=== PATIENT | male | born 1970 | race Caucasian/White ===

== ENCOUNTER 2021-11-07 12:28 | Inpatient (IN) | payer OTHER, SELFPAY ==
[2021-11-07] VITALS (19 sets, daily range): BP systolic 123–164; BP diastolic 63–128; PULSE 67–150; RESP 14–20; TEMP 36.1–36.6; O2SAT 97–100; BMI 37.3; BMI 35.2
--- NOTE | 2021-11-07 12:57 | ED.VIS.CHEST ---
HPI History of Present Illness Chief Complaint: Chest Pain Informant: patient Onset/Context/Timing Onset: Today Activity at onset: sudden Timing: Continuous Quality: Positive for Heaviness Location: Substernal Worsened By: Nothing Relieved By: Nothing Associated Symptoms: Positive for Nausea, Diaphoresis, Dyspnea, Acid Reflux and Palpitations; Negative for Vomiting, Cough, Fever or Lightheadedness Narrative Narrative: Patient presents with chest pain that began today. Patient states it began when he woke up this morning. Patient states it has been constant all day today. Patient describes it as a heaviness. Patient states it is over the substernal area. Patient also states he feels like his heart is racing. Patient states he had a brief episode a couple days ago but that resolved. Patient admits to some nausea but denies any vomiting. Patient admits to some mild diaphoresis. Patient admits to some shortness of breath. CVD Risk Factors: Positive for Family History 1' </=55; Negative for Hypertension, Diabetes, Hypercholesterolemia or Smoking PE Risk Factors: Negative for Recent Travel/Surgery, Recent Immobilization, Prior DVT or PE, Cancer or OCP + Smoking + >/=35 PFSH PFSH Medical History no medical history no medical history Home Medications NK 11/07/21 [History Last Taken Unknown] Allergy/AdvReac Type Severity Reaction Status Date / Time No Known Allergies Allergy Verified 11/07/21 12:28 Surgical History no surgical history no surgical history Social History Smoking Status: Former smoker ROS ROS ED Constitutional Constitutional ED: Denies chills or fever(s) Eyes Eyes: Denies blurry vision or change in vision ENT ENT ED: Denies rhinorrhea or sore throat Cardiovascular Cardiovascular: Reports chest pain, palpitations and racing heartbeat Respiratory/Chest Respiratory/Chest: Reports dyspnea; Denies cough Gastrointestinal Gastrointestinal: Reports nausea; Denies vomiting Genitourinary Genitourinary ED: Denies dysuria or hematuria Musculoskeletal Musculoskeletal: Denies back pain or neck pain Integumentary Reports rash; Denies abscess Neurologic Neurologic: Denies headache(s) or weakness Allergic/Immunologic Allergic/Immunologic ED: Denies mouth swelling or urticaria EXAM Physical Exam Const Vital Signs: 11/07/21 12:29 11/07/21 12:38 08/29/22 13:14 Temperature 97.9 F Temperature Source Oral Pulse Rate 150 H Respiratory Rate 16 Respiratory Pattern Normal Blood Pressure 146/128 H Blood Pressure Mean 134 Pulse Ox 98 Oxygen Delivery Method Room Air Room Air 11/07/21 13:28 11/07/21 14:03 11/07/21 14:17 Temperature Temperature Source Pulse Rate 134 H 135 H 138 H Respiratory Rate 17 Respiratory Pattern Blood Pressure 164/72 H 135/108 H 129/95 H Blood Pressure Mean 102 117 Pulse Ox 97 Oxygen Delivery Method Room Air 11/07/21 14:29 Temperature 98 F Temperature Source Temporal Pulse Rate 136 H Respiratory Rate 17 Respiratory Pattern Blood Pressure 124/96 H Blood Pressure Mean 105 Pulse Ox 98 Oxygen Delivery Method Positive well nourished, well developed and obese General Appearance ED: well developed and NAD Nutritional Appearance: obese HEENT Reports moist mucous membranes Neck supple and no JVD Resp normal respiratory effort and clear to auscultation bilaterally Cardio no murmurs Rate: tachycardic Rhythm: abnormal rhythm irregularly irregular GI normal to inspection, nondistended, normoactive bowel sounds and non-tender Palpation: soft Extremity normal to inspection General Extremety ED: Negative for edema or tenderness General Extremity: Negative for edema Neuro oriented x3, CN's II-XII intact bilaterally and no sensory deficits noted Sensorium / Orientation: alert Motor Exam: strength 5/5 throughout Psych mental status grossly normal Skin no rashes or lesions noted Heart Score History: Moderately Suspicious ECG: Nonspecific Repolarization Age: >45 - <65 years Risk Factors: 1 or 2 Risk Factors Score: 4 MDM MDM MDM Narrative Medical decision making narrative: EKG was obtained. On my interpretation, it shows atrial fibrillation with a rate of 168. There are nonspecific ST-T wave changes. QRS interval and QTc intervals were within normal limits. Jolley was normal. Given a dose of Cardizem IV. Patient was given aspirin. Patient was given sublingual nitroglycerin. CBC shows a mild leukocytosis of 11.4. Basic metabolic profile shows an elevated glucose of 175. High-sensitivity troponin was 2465. Patient's heart rate improved from 150 to 130s after the bolus of Cardizem. Patient was started on a Cardizem drip. Case was discussed with Dr. Singleton. He agrees with heparin drip. Case was discussed with the hospitalist. He will admit the patient to his service. Patient understood and was agreeable with the plan. All questions were answered. Lab Data Attestation: I reviewed the patient's lab results. Labs: Laboratory Results - last 24 hr 11/07/21 11/07/21 11/07/21 13:10 13:10 13:10 WBC 11.4 H RBC 5.66 Hgb 17.8 H Hct 49.8 MCV 88.0 MCH 31.4 MCHC 35.7 RDW Std Deviation 41.0 RDW Coeff of Yeny 12.8 Plt Count 318 MPV 9.1 Immature Gran % (Auto) 0.400 Neut % (Auto) 68.0 Lymph % (Auto) 20.0 Cole % (Auto) 9.1 Eos % (Auto) 1.9 Baso % (Auto) 0.6 Absolute Neuts (auto) 7.7 Absolute Lymphs (auto) 2.27 Nucleated RBC % 0 PT 12.0 INR 0.9 APTT 29.4 Sodium 138 Potassium 3.6 Chloride 105 Carbon Dioxide 26.0 Anion Gap 7 BUN 15 Creatinine 0.83 Estim Creat Clear Calc 123.02 Est GFR (MDRD) Af Amer 124 Est GFR (MDRD) Non-Af 102 BUN/Creatinine Ratio 18.0 Glucose 175 H Calcium 9.5 Troponin I High Sens 2465 H* Radiography Chest X-Ray - ED: 1 View, Read by ED Physician, Read by Radiologist and No Acute Disease Diagnostic Testing: Clinical Impression(s) from Imaging Studies Chest X-Ray 11/07/21 13:20 IMPRESSION: Hyperinflation. The lungs are clear. Electronically Signed: Tony Alcaraz MD at 13:35 EDT , EKG Initial EKG: Attestation: I personally reviewed and interpreted this EKG as follows: Interpretation: Atrial Fibrillation (168) and Non-Specific ST Changes Critical Care Time Critical Care Time: Yes Critical care time (excluding procedures): 30-74 minutes (33), Including time spent:, Discussing w/Patient &/or Family/Corporate Law Specialist, Discussing w/Consultants, Arranging Admission or Transfer and Performing Direct Patient Care at Bedside Discharge Plan Dx/Rx/DC Orders Clinical Impression: Non-STEMI (non-ST elevated myocardial infarction), Atrial fibrillation with rapid ventricular response, Hyperglycemia Disposition Disposition: Acute Care Hospital [facility]
--- NOTE | 2021-11-07 13:03 | EKG12_ITS ---
Test Reason : Blood Pressure : / mmHG Vent. Rate : 168 BPM Atrial Rate : 000 BPM P-R Int : 000 ms QRS Dur : 094 ms QT Int : 290 ms P-R-T Axes : 000 065 240 degrees QTc Int : 484 ms Atrial fibrillation with rapid ventricular response with premature ventricular or aberrantly conducte d complexes Marked ST abnormality, possible lateral subendocardial injury Abnormal ECG Confirmed by JUNG RAMOS, TYRELL ([id number]), newspaper or periodical editor [employer] ([id number]) on 11/08/2021 7:44:12 AM Referred By: Confirmed By:TYRELL FENG MD
--- NOTE | 2021-11-07 13:06 | NURSING ---
NO OLD EKGS
[2021-11-07] MEDS: Aspirin 81 MG TAB.CHEW 324 MG PO (13:10)
[2021-11-07] MEDS: dilTIAZem 25 MG/5 ML Vial IV BOLUS (13:11)
--- NOTE | 2021-11-07 13:20 | RAD_ITS ---
STUDY: X-RAY CHEST REASON FOR EXAM: Male, 51 years old. Chest pain TECHNIQUE: Single AP portable view of the chest. COMPARISON: None. FINDINGS: EKG electrodes are seen. Hyperinflation. The lungs are clear. There is no demonstrated pleural abnormality. Normal size heart. Normal mediastinum and roderick. Normal visualized pulmonary arteries. Normal visualized aortic arch and descending thoracic aorta. Normal visualized thoracic spine. Normal visualized ribs, clavicles, and shoulders. There is no demonstrated abnormality of the visualized soft tissue structures of the upper abdomen. RAD/Chest 1 View (Portable) IMPRESSION: Hyperinflation. The lungs are clear. Electronically Signed: Tony Alcaraz MD at 13:35 EDT ,
[2021-11-07 13:21] LABS: Absolute Lymphocyte Count 2.27 X10^3/uL (0.83-4.51); Absolute Neutrophil Count 7.7 X10^3/uL (2.0-7.7); Basophil# 0.07 X10^3/uL; Basophil% 0.6 % (0-1); Eosinophil# 0.22 X10^3/uL; Eosinophils% 1.9 % (0-5); Hematocrit 49.8 % (40-54); Hemoglobin 17.8 g/dL (13.0-16.5); Lymphocyte # 2.27 X10^3/ul (0.83-4.51); Mean Corp Hgb Conc 35.7 g/dL (32-36); Mean Corpuscular Hgb 31.4 pg (27.0-32.0); Mean Platelet Vol. 9.1 fl (6.2-12.0); Monocyte# 1.04 X10^3/uL; Monocyte% 9.1 % (0-10); NRBC Flagged by Analyzer 0 % (0-5); Neutrophil # 7.73 X10^3/uL (2.7-7.7); Platelet Count 318 K/mm3 (150-450); RBC Distribution Width CV 12.8 % (11.6-14.6); Red Blood Count 5.66 M/mm3 (4.6-6.2); White Blood Count 11.4 K/mm3 (4.4-11.0)
[2021-11-07 13:46] LABS: Anion Gap 7 (5-15); BUN 15 mg/dL (7-18); Calcium,Total 9.5 mg/dL (8.5-10.1); Chloride 105 mmol/L (98-107); Creatinine, Serum 0.83 mg/dL (0.70-1.30); EST Glomerular Filtration Rate 102 mL/min (>60); Est Glom Filt Rate - Afr Amer 124 mL/min (>60); Estimated Creatinine Clearance 123.02 ml/min; Glucose 175 mg/dL (74-106); Potassium 3.6 mmol/L (3.5-5.1); Sodium Level 138 mmol/L (136-145); Troponin-I HS (w/2H Reflex) 2465 pg/mL (3.0-78.0)
[2021-11-07] MEDS: HEPARIN/D5w 25,000 UNITS 25,000 UNITS/250 ML IV.SOLN. 17 UNITS CONT INF (14:15)
[2021-11-07] MEDS: Nitroglycerin SL (ED/IMG/CATH) 0.4 MG TABLET SL ×2 (14:17→15:02)
--- NOTE | 2021-11-07 14:36 | NURSING ---
RADU JAQUEZ NSTEMI, AFIB RVR
[2021-11-07] MEDS: Heparin Injection (Vial) 5,000 UNIT/ML VIAL 10500 UNIT IV (14:46)
[2021-11-07 14:50] LABS: International Normalized Ratio 0.9; Partial Thromboplast Time 29.4 Seconds (24.1-36.2)
--- NOTE | 2021-11-07 14:54 | ECHOCS_ITS ---
Reason For Study: AFIB/FLUTTER Procedure This was a 2D Doppler, Color Flow transthoracic echocardiogram. The study was technically difficult. Due to body habitus and arrhythmia. Contrast injection was performed. Exam performed portable in ED. Left Ventricle Based upon the 2D echocardiographic and contrast enhanced images obtained there appears to be grossly normal left ventricular size, left ventricular regional wall motion abnormality, overall preserved LV systolic function. The estimated ejection fraction is 65 %. Unable to assess diastolic dysfunction. Right Ventricle Based upon the 2D echocardiographic images obtained there appears to be grossly normal right ventricular size and systolic function. Atria Normal left atrium. Normal right atrium. No doppler evidence for ASD. Mitral Valve There is no mitral annular calcification. Normal mitral valve. Trivial mitral valve insufficiency. Tricuspid Valve Normal tricuspid valve. Trivial tricuspid valve insufficiency. Unable to estimate RV systolic pressure/pulmonary artery pressure due to technically difficult study. Aortic Valve The aortic valve is not well visualized. Pulmonic Valve The pulmonic valve is not well visualized. Great Vessels The aortic root is not well visualized. Pericardium/Pleural No pericardial effusion. Medication Diluted definity 4.0ml given slow IV push to enhance endocardial definition. MMode/2D Measurements & Calculations LVIDd: 5.5 cm IVSd: 1.2 cm LAV(MOD-bp): 60.8 ml LVIDs: 4.4 cm LVPWd: 1.1 cm RVDd: 3.2 cm FS: 20.5 % LAV(MOD-bp) Indexed: 23.4 ml/m2 LAV(MOD-sp2): 57.9 ml LAV(MOD-sp4): 66.1 ml LA dimension(2D): 3.7 cm LA A4 area: 19.9 cm2 RA A4 area: 13.8 cm2 Doppler Measurements & Calculations MV E max jessica: 75.0 cm/sec Ao V2 max: 106.2 cm/sec LV V1 max: 89.1 cm/sec Ao max P.5 mmHg LV V1 max P.2 mmHg PA V2 max: 92.1 cm/sec ECHO/Echo Complete W/ Contrast Interpretation Summary The study was technically difficult. Contrast injection was performed. Based upon the 2D echocardiographic and contrast enhanced images obtained there appears to be grossly normal left ventricular size, left ventricular regional wall motion abn ormality, overall preserved LV systolic function. The estimated ejection fraction is 65 %. Trivial mitral valve insufficiency. Trivial tricuspid valve insufficiency. Unable to estimate RV systolic pressure/pulmonary artery pressure due to techni trey difficult study. Unable to assess diastolic dysfunction. Ordering Physician: Meera Butterfield Referring Physician: NO PCP Performed By: Maria L Menjivar RDCS, RVT
[2021-11-07 15:16] LABS: Reflex Troponin-HS? (from REC) Y
--- NOTE | 2021-11-07 15:22 | CASEMGMT ---
According to the [employer] website, the following are in-network tertiary facilities: [facility], [facility], [facility], [facility], [facility], [facility], [facility], [facility], [facility], and . Varsha COWAN CM
[2021-11-07 15:34] LABS: Hemoglobin A1c 5.4 % (3.8-5.6)
--- NOTE | 2021-11-07 15:43 | HP.PCM.HOS_ITS ---
Documented by User: Meera Butterfield NP, [employer] 11/07/21 15:57 HPI - General General Date of Admission: 11/07/21 Date of Service: 11/07/21 Chief Complaint: Chest pain. HPI Narrative ALLEY GUPTA, is a 51 M who presents to the emergency room due to chest pain. Patient states this initially began on Sunday. He states yesterday he did not have any chest pain however upon waking this morning his chest pain had r eturned. He describes associated shortness of breath. Denies pain radiation. He took Tums/antacids at home without improvement in symptoms. He denies palpitations. Denies history of similar symptoms or known cardiac history. He states he does not go to doctors. Denies other known medical history. He is a former smoker. [facility] Medical History no medical history Home Medications NK 11/07/21 [History Last Taken Unknown] Allergy/AdvReac Type Severity Reaction Status Date / Time No Known Allergies Allergy Verified 11/07/21 12:28 Family History Father No cardiac disease Mother Multiple sclerosis Surgical History History of tonsillectomy Surgical History no surgical history Social History household members: spouse Smoking Status: Former smoker alcohol intake: never substance use type: does not use ROS Constitutional Constitutional: Denies change in weight, chills, fatigue, fever(s) or weakness Cardiovascular Cardiovascular: Reports chest pain; Denies edema, lightheadedness, palpitations or syncope Respiratory/Chest Respiratory/Chest: Reports other Details: Shortness of breath associated with chest pain ; Denies cough, productive cough or wheezing Gastrointestinal Gastrointestinal: Denies abdominal pain, constipation, diarrhea, nausea or vomiting Genitourinary Genitourinary: Denies burning urination, difficulty urinating, dysuria, hematuria, urinary frequency, urinary incontinence or urinary urgency Musculoskeletal Musculoskeletal: Denies back pain, joint pain or muscle weakness Integumentary Integumentary: Denies erythema, lesions, rash or wounds Neurologic Neurologic: Denies abnormal speech, confusion, dizziness, focal weakness, numbness, paresthesias, seizure-like activity or syncope Psychiatric Psychiatric: Denies anxiety or depression Hematologic/Lymphatic Hematologic/Lymphatic: Denies anemia, easy bleeding or easy bruising Allergic/Immunologic Allergic/Immunologic: Denies hives or asthma Vital Signs Vital Signs Vital Signs: 11/07/21 12:29 11/07/21 12:38 11/07/21 13:14 Temperature 97.9 F Temperature Source Oral Pulse Rate 150 H Respiratory Rate 16 Respiratory Pattern Normal Blood Pressure 146/128 H Blood Pressure Mean 134 Blood Pressure Source Blood Pressure Position Blood Pressure Location Pulse Ox 98 Oxygen Delivery Method Room Air Room Air 11/07/21 13:28 11/07/21 14:03 11/07/21 14:17 Temperature Temperature Source Pulse Rate 134 H 135 H 138 H Respiratory Rate 17 Respiratory Pattern Blood Pressure 164/72 H 135/108 H 129/95 H Blood Pressure Mean 102 117 Blood Pressure Source Blood Pressure Position Blood Pressure Location Pulse Ox 97 Oxygen Delivery Method Room Air 11/07/21 14:29 11/07/21 15:02 11/07/21 15:03 Temperature 98 F Temperature Source Temporal Pulse Rate 136 H 140 H 144 H Respiratory Rate 17 18 Respiratory Pattern Blood Pressure 124/96 H 155/107 H 155/107 H Blood Pressure Mean 105 123 Blood Pressure Source Monitor Blood Pressure Position Semi-Fowlers Blood Pressure Location Right Arm Pulse Ox 98 98 Oxygen Delivery Method Room Air Weight Weight: 298 lb 4.567 oz Body Mass Index (BMI) 37.3 Physical Exam Const alert, oriented x3 and no apparent distress Nutritional Appearance: obese HEENT normocephalic and moist oral mucous membranes Eyes PERRL, EOMs intact bilaterally and conjunctivae normal Neck no lymphadenopathy Resp normal respiratory effort and clear to auscultation bilaterally Cardio no murmurs Cardio Narrative: A. fib with RVR Peripheral Pulses: pulses 2+ throughout GI normal to inspection, nondistended, normoactive bowel sounds, non-tender and non-distended Extremity normal to inspection Skin no rashes or lesions noted Lesions: no lesions Rashes: no rashes Trauma: no lacerations or abrasions Neuro CN's II-XII intact bilaterally, no focal motor deficits, no sensory deficits noted and deep tendon reflexes 2+ bilaterally Psych mental status grossly normal and affect normal Results Lab / Micro Data Result Diagrams: 11/07/21 13:10 11/07/21 13:10 Labs: Laboratory Results - last 24 hr 11/07/21 13:10: WBC 11.4 H, RBC 5.66, Hgb 17.8 H, Hct 49.8, MCV 88.0, MCH 31.4, MCHC 35.7, RDW Std Deviation 41.0, RDW Coeff of Yeny 12.8, Plt Count 318, MPV 9.1, Immature Gran % (Auto) 0.400, Neut % (Auto) 68.0, Lymph % (Auto) 20.0, [facility] % (Auto) 9.1, Eos % (Auto) 1.9, Baso % (Auto) 0.6, Absolute Neuts (auto) 7.7, Absolute Lymphs (auto) 2.27, Nucleated RBC % 0 11/07/21 13:10: Sodium 138, Potassium 3.6, Chloride 105, Carbon Dioxide 26.0, Anion Gap 7, BUN 15, Creatinine 0.83, Estim Creat Clear Calc 123.02, Est GFR (MDRD) Af Amer 124, Est GFR (MDRD) Non-Af 102, BUN/Creatinine Ratio 18.0, Gluc ose 175 H, Calcium 9.5, Troponin I High Sens 2465 H* 11/07/21 13:10: PT 12.0, INR 0.9, APTT 29.4 11/07/21 13:10: Hemoglobin A1c 5.4 Radiology Impression Chest X-Ray 11/07/21 13:20 IMPRESSION: Hyperinflation. The lungs are clear. Electronically Signed: Tony Alcaraz MD at 13:35 EDT , Assessment & Plan Assessment/Plan (1) Non-STEMI (non-ST elevated myocardial infarction): (2) Atrial fibrillation with rapid ventricular response: PLAN: Plan 1. NSTEMI-cardiology consulted. On heparin drip. Aspirin. Lipid profile in AM. Echo ordered. 2. New onset atrial fibrillation with RVR-placed on Cardizem drip on admission. Cardiology consulted. Heparin drip. Echocardiogram pending. TSH, mag within normal limits. 3. Hyperglycemia-reactive. Hemoglobin A1c 5.4%. 4. Former tobacco use-encouraged continued cessation. 5. Obesity-encouraged diet and lifestyle modifications. DVT prophylaxis-Heparin drip This patient was seen by TISHA Faulkner under the supervision of Dr. Mcneal. Time spent examining patient, reviewing data and subsequent management of care: 26 minutes Documented by User: Dr. Joselo Mcneal MD 11/07/21 18:26 HPI - General General Date of Admission: 11/07/21 Chief Complaint: Chest pain. Chest pain on Sunday 2 days ago and today. Shortness of breath associated with A. fib RVR HPI Narrative ALLEY GUPTA, is a 51 M who presents to the emergency room due to chest pain. Patient states this initially began on Sunday. He states yesterday he did not have any chest pain however upon waking this morning his chest pain had returned . He describes associated shortness of breath. Denies pain radiation. He took Tums/antacids at home without improvement in symptoms. He denies palpitations. Denies history of similar symptoms or known cardiac history. He states he does not go to doctors. Denies other known medical history. He is a former smoker. Patient is 50 question review is never seen physician for general wellbeing came to ED for chest pain. Patient said he had first chest pain 2 days ago on 11/05 that lasted for 1 hour but it felt like gas and burping. It was not associated with shortness of breath at that time. After that he was fine yesterday and then had chest pain in the morning today after he woke up. He said chest pain did not wake him up but he felt pressure-like midsternal associated with shortn ess of breath. It was localized with no radiation, 5-6/10 intensity. He denies any previous history of chest pain, angina on exertion or history of atherosclerotic heart disease, stress echo or cardiac cath. After some time he felt palpitation therefore came to ED and was found to be in A. fib RVR. In ED, twelve-lead EKG shows A. fib RVR 168 bpm, T wave inversion V3 to V6 and inferior leads. QTC 484 ms. Troponin high. Child And Family Services Specialist consulted and started on IV heparin drip and Cardizem drip. Patient not hypoxic or tachypneic. Labs reviewed and discussed in assessment and plan. [facility] Medical History no medical history Home Medications NK 11/07/21 [History Last Taken Unknown] Allergy/AdvReac Type Severity Reaction Status Date / Time No Known Allergies Allergy Verified 11/07/21 12:28 Family History Father No cardiac disease Mother Multiple sclerosis Surgical History History of tonsillectomy Surgical History no surgical history Social History household members: spouse Smoking Status: Former smoker alcohol intake: never substance use type: does not use ROS ROS Narrative No burning micturition or UTI. No nausea, vomiting, hematemesis GI bleed, constipation, diarrhea or abdominal pain. Patient felt mild lightheaded at the time of chest pain. No syncope. Rest 14 system ROS reviewed and or as mentioned below Physical Exam Narrative General: Alert, Oriented x3, Cooperative, obesity grade 3 BMI 45.2 kg/m? HEENT: Atraumatic, PERRLA, EOMI, Normocephalic Oral: No Gingival or Mucosal Lesions/ Ulcerations Neck: Supple, No JVD, Negative Carotid Bruits Lungs: Air entry diminished in bilateral lung bases. No crepitation/rhonchi Cardiovascular: A. fib RVR, Normal S1, Normal S2, No murmurs Abdomen: Bowel Sounds Present, Soft, Non Tender, Non-Distended : No renal angle tenderness. No suprapubic tenderness. Extremities: No edema, Capillary Refill Less than 3 Seconds Skin: No rashes, No breakdown Musculoskeletal: No Tenderness to Palpation of Joints or Extremities Neurological: Cranial nerves II-XII grossly intact, DTR 2+/4 and Symmetrical, Neuro grossly intact Psych/Mental Status: Normal Affect, Appropriate. Results Lab / Micro Data Result Diagrams: 11/07/21 13:10 11/07/21 13:10 Assessment & Plan Assessment/Plan (1) Non-STEMI (non-ST elevated myocardial infarction): (2) Atrial fibrillation with rapid ventricular response: PLAN: Plan 1. NSTEMI-cardiology consulted. On heparin drip. Aspirin. Lipid profile in AM. Echo ordered. 2. New onset atrial fibrillation with RVR-placed on Cardizem drip on admission. Cardiology consulted. Heparin drip. Echocardiogram pending. TSH, mag within normal limits. 3. Hyperglycemia-reactive. Hemoglobin A1c 5.4%. 4. Former tobacco use-encouraged continued cessation. 5. Obesity-encouraged diet and lifestyle modifications. DVT prophylaxis-Heparin drip This patient was seen by TISHA Faulkner under the supervision of Dr. Mcneal. Time spent examining patient, reviewing data and subsequent management of care: 26 minutes This patient was seen in conjunction with Meera CODY. I have independently in terviewed and examined the patient and reviewed pertinent history, examination findings, laboratory and plan of management. I have reviewed the note and agree with the documented findings with the few additional points. In brief, patient is 51-year-old gentleman admitted with atypical chest pain as well as shortness of breath, high troponin and EKG suggestive of non-STEMI and A. fib with RVR 1. Non-STEMI: EKG as mentioned in HPI. High troponin. Patient admitted in PCU. Child And Family Services Specialist consulted. Cycle cardiac enzymes and lipid profile tomorrow AM. Chest x-ray individually reviewed and no acute abnormality. Lungs are clear. 2D echo normal LV size, regional wall motion abnormality, EF 65%. On aspirin, IV heparin drip. 2. New onset A. fib with RVR: Exact respecting factor unclear possible due to non-STEMI. Patient started on IV Cardizem drip after Cardizem bolus given in ED. Patient converted in the evening. Cardizem drip tapered off and started on metoprolol 25 mg twice daily titrate up as per tolerated by patient's hemodynamic. 3. Hyperglycemia, reactive: A1c 5.4%. Diabetes mellitus and prediabetes ruled out. Other chronic comorbidities as mentioned above including former tobacco use and obesity grade 3, I have discussed my assessment with Meera CODY and orders have been reviewed. Living will/advanced directive/end of life care: Patient does not have living will or advanced directive. After discussion of benefits/risks procedures involved with full code, DNR CC arrest and DNR CC, the patient opted for full code. Patient does want artificial life support including intubation, tube feed, ventilator and/chest compression, central venous catheter, vasopressor and DC shock if needed Total time spent in [id number] encounter in discussion of advanced directive 16 minutes. Laboratory Results 11/07/21 13:10: WBC 11.4 H, RBC 5.66, Hgb 17.8 H, Hct 49.8, MCV 88.0, MCH 31.4, MCHC 35.7, RDW Std Deviation 41.0, RDW Coeff of Yeny 12.8, Plt Count 318, MPV 9.1, Immature Gran % (Auto) 0.400, Neut % (Auto) 68.0, Lymph % (Auto) 20.0, Baylor % (Auto) 9.1, Eos % (Auto) 1.9, Baso % (Auto) 0.6, Absolute Neuts (auto) 7.7, Absolute Lymphs (auto) 2.27, Nucleated RBC % 0 11/07/21 13:10: Sodium 138, Potassium 3.6, Chloride 105, Carbon Dioxide 26.0, Anion Gap 7, BUN 15, Creatinine 0.83, Estim Creat Clear Calc 123.02, Est GFR (MDRD) Af Amer 124, Est GFR (MDRD) Non-Af 102, BUN/Creatinine Ratio 18.0, Glucose 175 H, Calcium 9.5, Troponin I High Sens 2465 H* 11/07/21 13:10: PT 12.0, INR 0.9, APTT 29.4 11/07/21 13:10: Hemoglobin A1c 5.4 11/07/21 15:05: Magnesium 1.9, Troponin I High Sens 3624 H*, TSH 1.29 Clinical Impression(s) from Imaging Studies Echocardiogram 11/07/21 14:54 Interpretation Summary The study was technically difficult. Contrast injection was performed. Based upon the 2D echocardiographic and contrast enhanced images obtained there appears to be grossly normal left ventricular size, left ventricular regional wall motion abnormality, overall preserved LV systolic function. The estimated ejection fraction is 65 %. Trivial mitral valve insufficiency. Trivial tricuspid valve insufficiency. Unable to estimate RV systolic pressure/pulmonary artery pressure due to technically difficult study. Unable to assess diastolic dysfunction. Charges/Coding Visit Charges Inpatient E&M: 43720 Init Hosp L3 Procedures Hospitalists Procedures: 37140 Advncd Care Plan 30 Min
[2021-11-07 15:50] LABS: Magnesium 1.9 mg/dL (1.6-2.6); Thyroid Stim Hormone (TSH) 1.29 uIU/mL (0.358-3.74); Troponin-I HS 3624 pg/mL (3.0-78.0)
--- NOTE | 2021-11-07 16:39 | ED.RN ---
LATE ENTRY-MEDICATION PULLED FOR PT PER PRN ORDER. PT NOT IN ROOM. PT TAKEN TO FLOOR PER ADMISSION RN. MEDICATION WASTED PER PROTOCOL WITH RN
--- NOTE | 2021-11-07 17:08 | EKG12_ITS ---
Test Reason : AM EKG Blood Pressure : / mmHG Vent. Rate : 074 BPM Atrial Rate : 074 BPM P-R Int : 124 ms QRS Dur : 084 ms QT Int : 382 ms P-R-T Axes : 036 057 000 degrees QTc Int : 424 ms Normal sinus rhythm Nonspecific T wave abnormality Abnormal ECG Confirmed by JUNG RAMOS, TYRELL ([id number]), newspaper editor [employer] ([id number]) on 11/09/2021 8:25:07 AM Referred By: Confirmed By:TYRELL FENG MD
--- NOTE | 2021-11-07 17:51 | EKG12_ITS ---
Test Reason : Blood Pressure : / mmHG Vent. Rate : 110 BPM Atrial Rate : 000 BPM P-R Int : 000 ms QRS Dur : 086 ms QT Int : 320 ms P-R-T Axes : 000 049 -77 degrees QTc Int : 433 ms Atrial fibrillation with rapid ventricular response ST & T wave abnormality, consider inferior ischemia Abnormal ECG Confirmed by JUNG RAMOS, TYRELL ([id number]), photographic editor [employer] ([id number]) on 11/09/2021 8:27:44 AM Referred By: GISELE Confirmed By:TYRELL FENG MD
--- NOTE | 2021-11-07 17:53 | EKG12_ITS ---
Test Reason : Blood Pressure : / mmHG Vent. Rate : 072 BPM Atrial Rate : 072 BPM P-R Int : 120 ms QRS Dur : 092 ms QT Int : 368 ms P-R-T Axes : 019 058 -70 degrees QTc Int : 402 ms Normal sinus rhythm T wave abnormality, consider inferior ischemia Abnormal ECG Confirmed by JUNG RAMOS, TYRELL ([id number]), school photograph editor [employer] ([id number]) on 11/09/2021 8:27:23 AM Referred By: GISELE Confirmed By:TYRELL FENG MD
[2021-11-07] MEDS: Metoprolol Tartrate 25 MG Tablet PO (18:50)
--- NOTE | 2021-11-07 19:14 | CON.PCM.CA_ITS ---
Assessment & Plan Assessment/Plan (1) Non-STEMI (non-ST elevated myocardial infarction): PLAN: The patient presents with signs and objective findings compatible with an acute non-ST segment elevation NH. He has been evaluated with cardiac enzymes and ECGs. He is undergone evaluation with a transthoracic echocardiogram. At the moment he appears to be symptomatically improved. He will continue medical management. He has been recommended for further evaluation with diagnostic cardiac catheterization. The procedure and risks of been discussed with him. He was agreeable to this approach. (2) Atrial fibrillation with rapid ventricular response: PLAN: The patient presented with findings compatible with atrial fibrillation. Status post medical therapy with rate control he is demonstrated spontaneous c onversion to sinus rhythm. He will continue medical management. This has included anticoagulant therapy which can be interrupted for his diagnostic cardiac catheterization procedure. Based upon his clinical course consideration will have to be given as to the continued use of long-term oral systemic anticoagulants. (3) HTN (hypertension): PLAN: The patient reports having findings at nonphysician facilities compatible with hypertension. This does increase his cardiovascular risks This may be a contributing factor to his atrial dysrhythmia. At the present time he will continue to have his blood pressure followed. His medications can be adjusted to assist with blood pressure control. Addt'l Comments The patient's case has been discussed and viewed with the patient and the [facility] emergency department physician staff. This note was generated using a voice recognition system and there may be incorrect words, spelling or punctuation that were not noted when reviewing the office note prior to saving. HPI Consult Data Date of Consult: 11/07/21 HPI Narrative HPI Narrative: ALLEY GUPTA, is a 51 year old white male who presents for vascular consultation based upon concerns of chest discomfort, abnormal cardiac enzymes compatible with an acute non-ST segment elevation NH, and atrial fibrillation superimposed upon possible hypertension. He states that other than being evaluated by the medical community for lacerations requiring sutures he has not followed with a physician nor has he been in the hospital previously. He notes earlier this day he had what he believed to be was gas discomfort in his chest. He states he tried various antacids and again no relief. He had nausea but no emesis. He had the sensation of dyspnea. He also became diaphoretic. As his symptoms persisted he presented to the emergency department. There he was found upon evaluation to have abnormal high-sensitivity troponin I levels and atrial fibrillation with rapid ventricular response with ST segment abnormality potentially compatible with lateral subendocardial injury. He was treated medically with a combination of medicines including IV diltiazem. He was subsequently placed in the PCU for further evaluation and care. As he has been in the PCU he has been noted to have continued evidence of high- sensitivity troponin I levels. His atrial fibrillation rate slowed and he has subsequently spontaneously converted to sinus rhythm. His follow-up ECG demonstrated sinus rhythm with nonspecific ST and T wave abnormality. He also underwent transthoracic echocardiogram with the findings as noted below. Overall at the present time he states he feels much better. He feels he can get up and walk around the hospital. He denies any orthopnea or PND or a history of peripheral pitting edema. He has had no report of near syncope or syncope. He states he does check his blood pressure at places like [facility]. He notes his systolic blood pressure is usually 140 mmHg plus and his diastolic blood pressure may be 85-90 mmHg plus. [facility] Medical History no medical history Home Medications NK 11/07/21 [History Last Taken Unknown] Allergy/AdvReac Type Severity Reaction Status Date / Time No Known Allergies Allergy Verified 11/07/21 12:28 Family History Father No cardiac disease Mother Multiple sclerosis Surgical History History of tonsillectomy Surgical History no surgical history Social History household members: spouse Smoking Status: Former smoker alcohol intake: never substance use type: does not use ROS Constitutional Constitutional: Reports as per HPI Eyes Eyes: Reports as per HPI ENT HEENT: Reports as per HPI Cardiovascular Cardiovascular: Reports chest pain, chest pain at rest, diaphoresis, dyspnea and nausea Respiratory/Chest Respiratory/Chest: Reports dyspnea Gastrointestinal Gastrointestinal: Reports nausea Genitourinary Genitourinary: Reports as per HPI Musculoskeletal Musculoskeletal: Reports as per HPI Integumentary Integumentary: Reports as per HPI Neurologic Neurologic: Reports as per HPI Psychiatric Psychiatric: Reports as per HPI Physical Exam Const alert, oriented x3, no apparent distress and healthy appearing Orientation / Consciousness: awake HEENT normocephalic, head/scalp atraumatic and hearing grossly normal bilaterally Eyes PERRL, EOMs intact bilaterally, conjunctivae normal and no scleral icterus Neck full ROM, supple and no JVD Carotids: normal carotid upstroke Resp normal respiratory effort and clear to auscultation bilaterally Cardio regular rate, regular rhythm, S1 normal heart sound and S2 normal heart sound GI normal to inspection, nondistended, normoactive bowel sounds Extremity no pedal edema Extremity Narrative: Findings potentially compatible with psoriasis Skin Skin Narrative: Findings potentially compatible with psoriasis Psych mental status grossly normal Risk Stratification Risk Stratification Applicable: Yes Age >/= 65: No >/= 3 CAD Risk Factors (HTN, HLD, DM, family hx of CAD, or current smoker): No Aspirin Use in the Past 7 Days: No Severe Angina (>/= episodes in 24 hours): Yes EKG ST Changes >/= 0.5mm: Yes Positive Cardiac Marker: Yes SUZANNA Risk Stratification Score: 3 SUZANNA % Risk: 13% Risk Procedure Criteria Type of Procedure Procedure Type: Elective Elective Risks - COVID COVID Risk Discussion: The surgeon/proceduralist and patient have discussed in detail the risk of exposure to and/or potential harm posed by the COVID-19 virus with having a surgery/procedure at this time versus the risk of delaying the surgery/procedure. It is not possible to know either the risk of delaying the surgery or procedure or chance of getting an infection with perfect accuracy, but a joint decision was made between the patient and the surgeon/proceduralist to proceed at this time with the scheduled surgery/procedure as indicated on the consent form. Objective Data Vital Signs: Vital Signs Temp Pulse Resp BP Pulse Ox O2 Del Method 97.0 F L 79 14 140/87 H 99 Room Air 11/07/21 16:15 11/07/21 19:00 11/07/21 19:00 11/07/21 19:00 11/07/21 19:00 11/07/21 19:00 Oxygen Delivery Method Room Air Weight: 281 lb 4.957 oz Body Mass Index (BMI) 35.2 Intake & Output: Intake and Output for Last 24 Hours 11/05/21 11/06/21 11/07/21 23:59 23:59 23:59 Intake Total 598.25 / 598.25 Balance 598.25 / 598.25 Lab / Micro Data Result Diagrams: 11/07/21 13:10 11/07/21 13:10 Labs: Laboratory Results - last 24 hr 11/07/21 13:10: WBC 11.4 H, RBC 5.66, Hgb 17.8 H, Hct 49.8, MCV 88.0, MCH 31.4, MCHC 35.7, RDW Std Deviation 41.0, RDW Coeff of Yeny 12.8, Plt Count 318, MPV 9.1, Immature Gran % (Auto) 0.400, Neut % (Auto) 68.0, Lymph % (Auto) 20.0, [place] % (Auto) 9.1, Eos % (Auto) 1.9, Baso % (Auto) 0.6, Absolute Neuts (auto) 7.7, Absolute Lymphs (auto) 2.27, Nucleated RBC % 0 11/07/21 13:10: Sodium 138, Potassium 3.6, Chloride 105, Carbon Dioxide 26.0, Anion Gap 7, BUN 15, Creatinine 0.83, Estim Creat Clear Calc 123.02, Est GFR (MDRD) Af Amer 124, Est GFR (MDRD) Non-Af 102, BUN/Creatinine Ratio 18.0, Glucose 175 H, Calcium 9.5, Troponin I High Sens 2465 H* 11/07/21 13:10: PT 12.0, INR 0.9, APTT 29.4 11/07/21 13:10: Hemoglobin A1c 5.4 11/07/21 15:05: Magnesium 1.9, Troponin I High Sens 3624 H*, TSH 1.29 Cardiology Labs/Tests 11/07/21 13:10: WBC 11.4 H, RBC 5.66, Hgb 17.8 H, Hct 49.8, MCV 88.0, MCH 31.4, MCHC 35.7, Plt Count 318, MPV 9.1, Immature Gran % (Auto) 0.400, Neut % (Auto) 68.0, Lymph % (Auto) 20.0, [place] % (Auto) 9.1, Eos % (Auto) 1.9, Baso % (Auto) 0.6, Absolute Neuts (auto) 7.7, Nucleated RBC % 0 11/07/21 13:10: Sodium 138, Potassium 3.6, Chloride 105, Carbon Dioxide 26.0, Anion Gap 7, BUN 15, Creatinine 0.83, Est GFR (MDRD) Af Amer 124, Est GFR (MDRD) Non-Af 102, BUN/Creatinine Ratio 18.0, Glucose 175 H, Calcium 9.5 11/07/21 13:10: PT 12.0, INR 0.9, APTT 29.4 11/07/21 13:10: Hemoglobin A1c 5.4 11/07/21 15:05: Magnesium 1.9 Rhythm: Sinus rhythm EKG: As noted above Radiography Diagnostic Testing: Radiology Impression Chest X-Ray 11/07/21 13:20 IMPRESSION: Hyperinflation. The lungs are clear. Electronically Signed: Tony Alcaraz MD at 13:35 EDT , Echocardiogram 11/07/21 14:54 Interpretation Summary The study was technically difficult. Contrast injection was performed. Based upon the 2D echocardiographic and contrast enhanced images obtained there appears to be grossly normal left ventricular size, left ventricular regional wall motion abnormality, overall preserved LV systolic function. The estimated ejection fraction is 65 %. Trivial mitral valve insufficiency. Trivial tricuspid valve insufficiency. Unable to estimate RV systolic pressure/pulmonary artery pressure due to technically difficult study. Unable to assess diastolic dysfunction. Ordering Physician: Meera Butterfield Referring Physician: TIAGO PCP Performed By: Maria L Menjivar, RDCS, RVT
[2021-11-07 21:06] LABS: Partial Thromboplast Time 50.8 Seconds (24.1-36.2)
[2021-11-07 21:09] LABS: Troponin-I HS 15723 pg/mL (3.0-78.0)
[2021-11-07] MEDS: Lisinopril 5 MG Tablet PO (21:24)
[2021-11-07] MEDS: Heparin Injection (Vial) 5,000 UNIT/ML VIAL IV (21:24)
[2021-11-07] MEDS: 0.9% Saline Lock 10 ML Syringe IV (21:24)
[2021-11-08] VITALS (19 sets, daily range): BP systolic 110–140; BP diastolic 69–86; PULSE 63–102; RESP 14–16; TEMP 36.2–37.1; O2SAT 96–99
[2021-11-08 03:45] LABS: Absolute Lymphocyte Count 3.28 X10^3/uL (0.83-4.51); Basophil# 0.06 X10^3/uL; Basophil% 0.4 % (0-1); Eosinophil# 0.16 X10^3/uL; Hematocrit 45.8 % (40-54); Hemoglobin 15.9 g/dL (13.0-16.5); Lymphocyte # 3.28 X10^3/ul (0.83-4.51); Lymphocyte % 20.6 % (19-41); Mean Corp Hgb Conc 34.7 g/dL (32-36); Mean Corpuscular Hgb 31.1 pg (27.0-32.0); Mean Corpuscular Volume 89.5 fL (80-94); Mean Platelet Vol. 8.8 fl (6.2-12.0); Monocyte# 1.38 X10^3/uL; Monocyte% 8.7 % (0-10); NRBC Flagged by Analyzer 0 % (0-5); Neutrophil # 11.01 X10^3/uL (2.7-7.7); Neutrophil % 68.9 % (47-70); Platelet Count 283 K/mm3 (150-450); RBC Distribution Width CV 12.8 % (11.6-14.6); RBC Distribution Width SD 42.3 fl (35.1-43.9); Red Blood Count 5.12 M/mm3 (4.6-6.2)
[2021-11-08 03:56] LABS: Partial Thromboplast Time 42.1 Seconds (24.1-36.2)
[2021-11-08 04:47] LABS: Anion Gap 7 (5-15); BUN 13 mg/dL (7-18); BUN/Creat Ratio 17.6 RATIO (10-20); Chloride 103 mmol/L (98-107); Cholesterol 154 mg/dL (200); Creatinine, Serum 0.74 mg/dL (0.70-1.30); EST Glomerular Filtration Rate 117 mL/min (>60); Est Glom Filt Rate - Afr Amer 142 mL/min (>60); Estimated Creatinine Clearance 137.98 ml/min; Glucose 117 mg/dL (74-106); High Density Lipoprotein 30 mg/dL; Sodium Level 136 mmol/L (136-145); Triglycerides 234 mg/dL; Very Low Density Lipoprotein 47 mg/dL (5-40)
[2021-11-08] MEDS: 0.9% Normal Saline 1,000 ML 15 ML IV (06:15)
[2021-11-08] MEDS: Aspirin E.C. 81 MG Tablet PO (06:16)
[2021-11-08] MEDS: Lisinopril 5 MG Tablet PO ×2 (06:17→21:25)
[2021-11-08] MEDS: Metoprolol Tartrate 25 MG Tablet PO ×2 (06:17→21:25)
[2021-11-08] MEDS: 0.9% Saline Lock 10 ML Syringe IV ×2 (06:17→21:25)
--- NOTE | 2021-11-08 07:33 | PCM.PN.HOSP ---
Objective Data Objective Data Vital Signs: Vital Signs Temp Pulse Resp BP Pulse Ox O2 Del Method 36.2 C L 78 16 121/69 H 98 Room Air 11/08/21 06:15 11/08/21 06:17 11/08/21 06:15 11/08/21 06:15 11/08/21 06:15 11/08/21 06:15 Oxygen Delivery Method Room Air Weight: 127.6 kg Body Mass Index (BMI) 35.2 Intake & Output: Intake and Output for Last 24 Hours 11/06/21 11/07/21 11/08/21 23:59 23:59 23:59 Intake Total 722.35 / 1322.35 720.6 / 720.6 Balance 722.35 / 1322.35 720.6 / 720.6 Lab / Micro Data Result Diagrams: 11/08/21 03:15 11/08/21 03:15 Labs: Laboratory Results - last 24 hr 11/07/21 13:10: WBC 11.4 H, RBC 5.66, Hgb 17.8 H, Hct 49.8, MCV 88.0, MCH 31.4, MCHC 35.7, RDW Std Deviation 41.0, RDW Coeff of Yeny 12.8, Plt Count 318, MPV 9.1, Immature Gran % (Auto) 0.400, Neut % (Auto) 68.0, Lymph % (Auto) 20.0, Emanuel % (Auto) 9.1, Eos % (Auto) 1.9, Baso % (Auto) 0.6, Absolute Neuts (auto) 7.7, Absolute Lymphs (auto) 2.27, Nucleated RBC % 0 11/07/21 13:10: Sodium 138, Potassium 3.6, Chloride 105, Carbon Dioxide 26.0, Anion Gap 7, BUN 15, Creatinine 0.83, Estim Creat Clear Calc 123.02, Est GFR (MDRD) Af Amer 124, Est GFR (MDRD) Non-Af 102, BUN/Creatinine Ratio 18.0, Glucose 175 H, Calcium 9.5, Troponin I High Sens 2465 H* 11/07/21 13:10: PT 12.0, INR 0.9, APTT 29.4 11/07/21 13:10: Hemoglobin A1c 5.4 11/07/21 15:05: Magnesium 1.9, Troponin I High Sens 3624 H*, TSH 1.29 11/07/21 20:15: Troponin I High Sens 44805 H* 11/07/21 20:15: APTT 50.8 H 11/08/21 03:15: WBC 16.0 H, RBC 5.12, Hgb 15.9, Hct 45.8, MCV 89.5, MCH 31.1, MCHC 34.7, RDW Std Deviation 42.3, RDW Coeff of Yeny 12.8, Plt Count 283, MPV 8.8, Immature Gran % (Auto) 0.400, Neut % (Auto) 68.9, Lymph % (Auto) 20.6, Emanuel % (Auto) 8.7, Eos % (Auto) 1.0, Baso % (Auto) 0.4, Absolute Neuts (auto) 11.0 H, Absolute Lymphs (auto) 3.28, Nucleated RBC % 0 11/08/21 03:15: Sodium 136, Potassium 4.0, Chloride 103, Carbon Dioxide 26.0, Anion Gap 7, BUN 13, Creatinine 0.74, Estim Creat Clear Calc 137.98, Est GFR (MDRD) Af Amer 142, Est GFR (MDRD) Non-Af 117, BUN/Creatinine Ratio 17.6, Glucose 117 H, Calcium 9.0, Triglycerides 234 H, Cholesterol 154, LDL Cholesterol 77, VLDL Cholesterol 47 H, HDL Cholesterol 30 L 11/08/21 03:15: APTT 42.1 H Radiography Diagnostic Testing: Radiology Impression Chest X-Ray 11/07/21 13:20 IMPRESSION: Hyperinflation. The lungs are clear. Electronically Signed: Tony Alcaraz MD at 13:35 EDT , Echocardiogram 11/07/21 14:54 Interpretation Summary The study was technically difficult. Contrast injection was performed. Based upon the 2D echocardiographic and contrast enhanced images obtained there appears to be grossly normal left ventricular size, left ventricular regional wall motion abnormality, overall preserved LV systolic function. The estimated ejection fraction is 65 %. Trivial mitral valve insufficiency. Trivial tricuspid valve insufficiency. Unable to estimate RV systolic pressure/pulmonary artery pressure due to technically difficult study. Unable to assess diastolic dysfunction. Ordering Physician: Meera Butterfield Referring Physician: TIAGO PCP Performed By: Maria L Menjivar, COREY, RVT Assessment & Plan Assessment/Plan (1) Non-STEMI (non-ST elevated myocardial infarction): PLAN: Peak trocardiology consulted. 2D echo shows EF 65% On heparin drip. Aspirin. Lipid profile in AM. Diagnostic cath planned (2) Atrial fibrillation with rapid ventricular response: PLAN: New onset atrial fibrillation with RVR-placed on Cardizem drip on admission. Cardiology consulted. Heparin drip. Echocardiogram pending. TSH, mag within normal limits. PLAN: Plan 3. Hyperglycemia-reactive. Hemoglobin A1c 5.4%. 4. Former tobacco use-encouraged continued cessation. 5. Obesity-encouraged diet and lifestyle modifications. DVT prophylaxis-Heparin drip This patient was seen by Meera Butterfield NP-C under the supervision of Dr. Mcneal. Time spent examining patient, reviewing data and subsequent management of care: 26 minutes This patient was seen in conjunction with Meera CODY. I have independently interviewed and examined the patient and reviewed pertinent history, examination findings, laboratory and plan of management. I have reviewed the note and agree with the documented findings with the few additional points. In brief, patient is 51-year-old gentleman admitted with atypical chest pain as well as shortness of breath, high troponin and EKG suggestive of non-STEMI and A. fib with RVR 1. Non-STEMI: EKG as mentioned in HPI. High troponin. Patient admitted in PCU. Rac Specialist consulted. Cycle cardiac enzymes and lipid profile tomorrow AM. Chest x-ray individually reviewed and no acute abnormality. Lungs are clear. 2D echo normal LV size, regional wall motion abnormality, EF 65%. On aspirin, IV heparin drip. 2. New onset A. fib with RVR: Exact respecting factor unclear possible due to non-STEMI. Patient started on IV Cardizem drip after Cardizem bolus given in ED. Patient converted in the evening. Cardizem drip tapered off and started on metoprolol 25 mg twice daily titrate up as per tolerated by patient's hemodynamic. 3. Hyperglycemia, reactive: A1c 5.4%. Diabetes mellitus and prediabetes ruled out. Other chronic comorbidities as mentioned above including former tobacco use and obesity grade 3, I have discussed my assessment with [employer] ETCHERMeera and orders have been reviewed. Living will/advanced directive/end of life care: Patient does not have living will or advanced directive. After discussion of benefits/risks procedures involved with full code, DNR CC arrest and DNR CC, the patient opted for full code. Patient does want artificial life support including intubation, tube feed, ventilator and/chest compression, central venous catheter, vasopressor and DC shock if needed Total time spent in [id number] encounter in discussion of advanced directive 16 minutes. Laboratory Results 11/07/21 13:10: WBC 11.4 H, RBC 5.66, Hgb 17.8 H, Hct 49.8, MCV 88.0, MCH 31.4, MCHC 35.7, RDW Std Deviation 41.0, RDW Coeff of Yeny 12.8, Plt Count 318, MPV 9.1, Immature Gran % (Auto) 0.400, Neut % (Auto) 68.0, Lymph % (Auto) 20.0, Emanuel % (Auto) 9.1, Eos % (Auto) 1.9, Baso % (Auto) 0.6, Absolute Neuts (auto) 7.7, Absolute Lymphs (auto) 2.27, Nucleated RBC % 0 11/07/21 13:10: Sodium 138, Potassium 3.6, Chloride 105, Carbon Dioxide 26.0, Anion Gap 7, BUN 15, Creatinine 0.83, Estim Creat Clear Calc 123.02, Est GFR (MDRD) Af Amer 124, Est GFR (MDRD) Non-Af 102, BUN/Creatinine Ratio 18.0, Glucose 175 H, Calcium 9.5, Troponin I High Sens 2465 H* 11/07/21 13:10: PT 12.0, INR 0.9, APTT 29.4 11/07/21 13:10: Hemoglobin A1c 5.4 11/07/21 15:05: Magnesium 1.9, Troponin I High Sens 3624 H*, TSH 1.29 Clinical Impression(s) from Imaging Studies Echocardiogram 11/07/21 14:54 Interpretation Summary The study was technically difficult. Contrast injection was performed. Based upon the 2D echocardiographic and contrast enhanced images obtained there appears to be grossly normal left ventricular size, left ventricular regional wall motion abnormality, overall preserved LV systolic function. The estimated ejection fraction is 65 %. Trivial mitral valve insufficiency. Trivial tricuspid valve insufficiency. Unable to estimate RV systolic pressure/pulmonary artery pressure due to technically difficult study. Unable to assess diastolic dysfunction.
--- NOTE | 2021-11-08 11:54 | ECHOL_ITS ---
Reason For Study: R/O Pericardial effusion Procedure This was a limited 2D transthoracic echocardiogram. Perfomed portable in labeling strategist. ECHO/Echo, Limited Study Interpretation Summary Limited study done in the labeling strategist to look for pericardial effusion did not rev eal any evidence of pericardial effusion. Ordering Physician: Jessica Mills Performed By: Kalani Flores WILLIAM
--- NOTE | 2021-11-08 12:15 | EKG12_ITS ---
Test Reason : PCI Blood Pressure : / mmHG Vent. Rate : 075 BPM Atrial Rate : 075 BPM P-R Int : 138 ms QRS Dur : 088 ms QT Int : 368 ms P-R-T Axes : 037 050 -04 degrees QTc Int : 410 ms Normal sinus rhythm Nonspecific T wave abnormality Abnormal ECG Confirmed by JUNG RAMOS, TYRELL ([id number]), videotape editor [employer] WOODS ([id number]) on 11/10/2021 8:15:18 AM Referred By: MARCEL Confirmed By:TYRELL FENG MD
--- NOTE | 2021-11-08 13:02 | PN.HOSP_ITS ---
Documented by User: Meera Butterfield NP, PULP OPERATOR-C 11/08/21 13:23 Subjective Subjective Patient seen and examined. Underwent heart cath with stent to RCA x4. Denies further chest pain. Denies shortness of breath. Remains in sinus rhythm. Objective Data Objective Data Vital Signs: Vital Signs Temp Pulse Resp BP Pulse Ox O2 Del Method 97.6 F L 80 16 118/78 96 Room Air 11/08/21 12:46 11/08/21 12:46 11/08/21 12:46 11/08/21 12:46 11/08/21 12:46 11/08/21 12:30 Oxygen Delivery Method Room Air Weight: 281 lb 4.957 oz Body Mass Index (BMI) 35.2 Intake & Output: Intake and Output for Last 24 Hours 11/06/21 11/07/21 11/08/21 23:59 23:59 23:59 Intake Total 722.35 / 1322.35 1080.6 / 1080.6 Balance 722.35 / 1322.35 1080.6 / 1080.6 Lab / Micro Data Result Diagrams: 11/08/21 03:15 11/08/21 03:15 Labs: Laboratory Results - last 24 hr 11/07/21 13:10: WBC 11.4 H, RBC 5.66, Hgb 17.8 H, Hct 49.8, MCV 88.0, MCH 31.4, MCHC 35.7, RDW Std Deviation 41.0, RDW Coeff of [place]eny 12.8, Plt Count 318, MPV 9.1, Immature Gran % (Auto) 0.400, Neut % (Auto) 68.0, Lymph % (Auto) 20.0, [place] % (Auto) 9.1, Eos % (Auto) 1.9, Baso % (Auto) 0.6, Absolute Neuts (auto) 7.7, Absolute Lymphs (auto) 2.27, Nucleated RBC % 0 11/07/21 13:10: Sodium 138, Potassium 3.6, Chloride 105, Carbon Dioxide 26.0, Anion Gap 7, BUN 15, Creatinine 0.83, Estim Creat Clear Calc 123.02, Est GFR (MDRD) Af Amer 124, Est GFR (MDRD) Non-Af 102, BUN/Creatinine Ratio 18.0, Glucose 175 H, Calcium 9.5, Troponin I High Sens 2465 H* 11/07/21 13:10: PT 12.0, INR 0.9, APTT 29.4 11/07/21 13:10: Hemoglobin A1c 5.4 11/07/21 15:05: Magnesium 1.9, Troponin I High Sens 3624 H*, TSH 1.29 11/07/21 20:15: Troponin I [place]ens 32840 H* 11/07/21 20:15: APTT 50.8 H 11/08/21 03:15: WBC 16.0 H, RBC 5.12, Hgb 15.9, Hct 45.8, MCV 89.5, MCH 31.1, MCHC 34.7, RDW Std Deviation 42.3, RDW Coeff of [place]en[place] 12.8, Plt Count 283, MPV 8.8, Immature Gran % (Auto) 0.400, Neut % (Auto) 68.9, Lymph % (Auto) 20.6, [place] % (Auto) 8.7, Eos % (Auto) 1.0, Baso % (Auto) 0.4, Absolute Neuts (auto) 11.0 H, Absolute Lymphs (auto) 3.28, Nucleated RBC % 0 11/08/21 03:15: Sodium 136, Potassium 4.0, Chloride 103, Carbon Dioxide 26.0, Anion Gap 7, BUN 13, Creatinine 0.74, Estim Creat Clear Calc 137.98, Est GFR (M DRD) Af Amer 142, Est GFR (MDRD) Non-Af 117, BUN/Creatinine Ratio 17.6, Glucose 117 H, Calcium 9.0, Triglycerides 234 H, Cholesterol 154, LDL Cholesterol 77, VLDL Cholesterol 47 H, HDL Cholesterol 30 L 11/08/21 03:15: APTT 42.1 H Radiography Diagnostic Testing: Radiology Impression Chest X-Ray 11/07/21 13:20 IMPRESSION: Hyperinflation. The lungs are clear. Electronically Signed: Tony Alcaraz MD at 13:35 EDT , Echocardiogram 11/07/21 14:54 Interpretation Summary The study was technically difficult. Contrast injection was performed. Based upon the 2D echocardiographic and contrast enhanced images obtained there appears to be grossly normal left ventricular size, left ventricular regional wall motion abnormality, overall preserved LV systolic function. The estimated ejection fraction is 65 %. Trivial mitral valve insufficiency. Trivial tricuspid valve insufficiency. Unable to estimate RV systolic pressure/pulmonary artery pressure due to technically difficult study. Unable to assess diastolic dysfunction. Ordering Physician: Meera Butterfield Referring Physician: TIAGO PCP Performed By: Maria L Menjivar RDCS, RVT Physical Exam Const alert, oriented x3 and no apparent distress Nutritional Appearance: obese HEENT normocephalic and moist oral mucous membranes Eyes PERRL, EOMs intact bilaterally and conjunctivae normal Neck no lymphadenopathy Resp normal respiratory effort and clear to auscultation bilaterally Cardio regular rate, regular rhythm and no murmurs Peripheral Pulses: pulses 2+ throughout GI normal to inspection, nondistended, normoactive bowel sounds, non-tender and non-distended Extremity normal to inspection Skin no rashes or lesions noted Lesions: no lesions Rashes: no rashes Trauma: no lacerations or abrasions Neuro CN's II-XII intact bilaterally, no focal motor deficits, no sensory deficits noted and deep tendon reflexes 2+ bilaterally Psych mental status grossly normal and affect normal Assessment & Plan Assessment/Plan (1) Non-STEMI (non-ST elevated myocardial infarction): (2) Atrial fibrillation with rapid ventricular response: PLAN: Plan 1. NSTEMI-cardiology consulted.? S/P heart cath with stent x4. Cath report pending. On aspirin, metoprolol, lisinopril, Brilinta. Add statin. 2.? New onset atrial fibrillation with RVR-Cardiology consulted. Echocardiogram with EF 65%.? TSH, mag within normal limits. Converted to sinus rhythm. Continue metoprolol. Cardiology further considering continued use of long-term anticoagulation. 3. Hyperglycemia-reactive.? Hemoglobin A1c 5.4%. 4. Former tobacco use-encouraged continued cessation. 5. Obesity-encouraged diet and lifestyle modifications. DVT prophylaxis-Heparin This patient was seen by TISHA Faulkner under the supervision of Dr. Lang. Time spent examining patient, reviewing data and subsequent management of care: 14 minutes Documented by User: Dr. Dagoberto Lang, 11/08/21 14:48 Objective Data Lab / Micro Data Result Diagrams: 11/08/21 03:15 11/08/21 03:15 Assessment & Plan Assessment/Plan (1) Non-STEMI (non-ST elevated myocardial infarction): (2) Atrial fibrillation with rapid ventricular response: Charges/Coding Addendum Addendum: Patient seen and examined independently. Data and vitals reviewed. I agree with the above note by the nurse practitioner. Feels better than he has in 20 years. No current chest pain. Patient is no acute distress and afebrile. Heart rate regular rate and rhythm plus S1-S2 with a murmurs gallops or rubs. Lungs are clear to auscultation bilaterally. Abdomen is soft nontender nondistended normal bowel sounds. Assessment and plan 1. Non-ST elevation myocardial infarction Status post PCI to the RCA. Will need staged PCI on LAD. May be done while patient is inpatient versus outpatient follow-up. Continue with aspirin, atorvastatin and ticagrelor 2. New onset atrial fibrillation with RVR EF 65% on 2D echocardiogram. No normal sinus rhythm. On heparin drip On metoprolol tartrate Visit Charges Inpatient E&M: 68444 Subs Hosp L2
--- NOTE | 2021-11-08 13:18 | CRPHASE1 ---
Patient Communication PHII Cardiac Rehab Discussed with Patient:: Yes Guide to Cardiac Rehab Given to Patient:: Yes Cardiac Rehab Facility Choice List Given to Patient:: Yes Choice Program [facility] CR PHII:: Communication Given to CR Choice Program Other:: Communication Given to CR Plumbing Technician:: Jessica Mills Refer Phase II Cardiac Rehab:: Yes Sessions:: 36 sessions - 3 days/wk, 12 weeks Cardiac Rehabilitation Info Cardiac Rehabilitation Program Information: Cardiac Rehabilitation is important for patients like you who are recovering from a heart problem. Cardiac rehabilitation programs are recognized as integral to the continued care of the patient with coronary heart disease. The cardiac rehabilitation program is designed to optimize a patient's physical, psychological, and social functioning. Health technical healthcare consultant work in cardiac rehabilitation programs and assist you with getting the treatments you need to get stronger and healthier - like exercise, healthy eating habits, and medications. Cardiac rehabilitation has been show to help people with heart problems live longer and have better life enjoyment than people who do not go to cardiac rehabilitation. Please contact the Cardiac Rehabilitation Program at [facility] at in two weeks if you have not heard from them.
--- NOTE | 2021-11-08 13:18 | CRPH1.INSTRU ---
General Education CAD and cardiac anatomy and function:: Patient communicates acknowledgment Explanation of diagnoses and procedures:: Patient communicates acknowledgment Sign/Symptoms of [place]:: Patient communicates acknowledgment Antiplatelet therapy: Patient communicates acknowledgment Smoking Patient Nicotine/Smoking Risk Factors Are:: Non-smoker Recommendations Include:: Previous smoker; encourage continued cessation Nicotine/Smoking Response Code:: Patient communicates acknowledgment Dyslipidemia Patient Dyslipidemia Risk Factors Are:: Total Cholesterol, Triglycerides, HDL, LDL Recommendations Include:: Lipid profile provided, Reviewed NCEP/ATP guidelines, Therapeutic Lifestyle Change dietary guidelines Dyslipidemia Response Code:: Patient communicates acknowledgment Overweight/Obesity Patient Overweight/Obesity Risk Factors Are:: Obesity - > or = 30 Recommendations Include:: Weight loss of 5-10%, Reduced calorie diet, Exercise 5-7 times/week Overweight/Obesity:: Patient communicates acknowledgment Hypertension Patient Hypertension Risk Factors Are:: No documented hx of HTN Diabetes Patient Diabetes Risk Factors Are:: No documented hx of diabetes Metabolic Syndrome Patient Metabolic Syndrome Risk Factors Are [3 of 5]:: Fasting blood sugar > 100 mg/dL, Waist circumference > 35 [female] or 40 [male], High triglyceride >150, Low HDL <40 [male] or < 50 [female] Recommendations Include:: Reinforce compliance to risk factor modifications, Encouraged follow-up with Primary Care Physician Metabolic Syndrome Response Code:: Patient communicates acknowledgment Sedentary Patient Sedentary Risk Factors Are:: Lack of regular exercise Recommendations Include:: Aerobic exercise 5-7 times/week for 20-30 minutes continuously, Benefits of regular exercise, Discussed home walking program, Monitored Outpatient Cardiac Rehab Sedentary Response Code:: Patient communicates acknowledgment Stress Recommendations Include:: Identification of stressors, and assessment of coping skills, Stress management techniques Stress Response Code:: Patient communicates acknowledgment
--- NOTE | 2021-11-08 13:37 | CASEMGMT ---
Patient does not have a Healthcare Power of Security Sme or Healthcare Living Will. Patient is not interested in completing documents. Vandana CHRISTENSEN
--- NOTE | 2021-11-08 13:45 | CASEMGMT ---
CHAPO GAVIN Face to Face with patient for initial transition planning/care coordination assessment. CHAPO GAVIN introduced self and role at [facility]. Patient lying in bed, alert and oriented. Patient willing to participate in assessment and is able to answer all questions appropriately. Care providers, pharmacy, and demographics verified. Patient wishes to discharge home, denies need for home health at this time. Patient states he has no further needs or concerns at this time. CM to follow for discharge planning needs that may arise. PCP: None, patient provided with copy of physician directory. CHAPO GAVIN educated patient on the importance of establishing with PCP for follow-up care. Patient voiced understanding and review list and schedule with preferred provider. Specialists: none Preferred Pharmacy: [facility] Insurance: [employer] Prescription Benefit: yes Living Will/HPOA: none LNOK: Living Arrangements: Patient lives with in 2 story condo with bed and bath on first floor, 2 steps to enter the home. Patient states he was independent at home prior to hospitalization Transportation: self, friend DME/HHC: Patient has BP cuff at home. Denies further DME in the home. Patient denies previous HHC. Disposition Plan: Patient to discharge home with family support and follow-up plans in place. Missy DE LEÓN, RN, CM
--- NOTE | 2021-11-08 15:02 | CL.D_ITS ---
Patient Name: ALLEY GUPTA Study Date: 11/08/2021 Performing: Wayne Singleton MD Ht: 75 inches 190.5 cm : 1970 Wt: 281.31 lbs 127.6 kg Age: 51 Gender: male BSA: 2.54 PROCEDURE(S) PERFORMED DC02-(51638)LHC/COR IC12-(57539/C9600)RENA W/WO PTCA, SINGLE CORONARY ARTERY CLINICAL PROFILE AND INDICATIONS Indications: ACS <= 24 hrs, Suspected CAD Heart Failure: None Stress/Imaging Stress/Image Study Performed: No Angina Classification Anginal Classification w/in 2 Weeks: CCS IV CAD Presentations: Non-STEMI. CONCLUSIONS Normal Left Ventricular End Diastolic Pressure [place] Multivessel CAD RECOMMENDATIONS Risk factor modification Medical therapy Consider further catheter based diagnostic evaluation by interventional cardiology Case discussed / reviewed with Dr. Mills on intervnetional cardiology DESCRIPTION OF PROCEDURE The patient arrived to the procedure lab. The risks and benefits of the procedure as well as a full description of our services here and current unavailability of surgical backup were fully explained to the patient and/or their significant other prior to the catheterization. The Timeout was completed, verifying the correct patient and procedure. The patient's procedural site was prepped and draped in the usual fashion. Local anesthetic was given subcutaneously to right radial region with Lidocaine 2%. Using a modified Seldinger technique, arterial access was obtained via the right radial artery, a 6Fr sheath was inserted., arterial access was obtained via the right radial artery, a 6Fr 23 cm sheath was inserted. Left Coronary Artery selective angiography was performed in multiple views using a 5 Fr. 4.0 [place] catheter. Right Coronary Artery selective angiography was then performed in multiple views using a 5 Fr. 4.0 [place] catheter. LV to AO pullback pressures were then recorded.The arterial sheath was pulled and a TR Band was applied for hemostasis CORONARY ANGIOGRAPHY DOMINANCE: Right Dominant LEFT HEART ASSESSMENT Left Ventricular Ejection Fraction: Not assessed Normal Left Ventricular End Diastolic Pressure LVEDP: 9 mmHg LEFT MAIN: Angiographically normal LEFT ANTERIOR DESCENDING ARTERY: PROX LAD: Mild calcification, 25 % Stenosis MID LAD: 95 % Stenosis CIRCUMFLEX ARTERY: PROX CIRC: Mild luminal irregularities, 50 % Stenosis RAMUS: Mild luminal irregularities RIGHT CORONARY ARTERY: PROX RCA: is occluded (possible thrombus) COLLATERAL FLOW: Collateral flow from Left to Right COMPLICATIONS No Complications PROCEDURE MEDICATIONS Versed 1 mg IV Fentanyl 50 mcg IV Versed 1 mg IV Fentanyl 50 mcg IV Versed 1 mg IV Fentanyl 50 mcg IV Fentanyl 50 mcg IV Fentanyl 50 mcg IV Fentanyl 25 mcg IV Oxygen: 2 L/min via nasal cannula Brilinta 180 mg PO @ 11/08/2021 11:53:00 Heparin given IA 11/08/2021 08:05:24 Heparin 8000 unit(s) IV 11/08/2021 09:54:03 Heparin 3000 unit(s) IV 11/08/2021 10:32:39 Heparin 2000 unit(s) IV 11/08/2021 11:24:20 Verapamil 2.5mg, Ntg 100mcgs, 3000 units of Heparin given IA 11/08/2021 08:05:24 SUMMARY OF HEMODYNAMIC DATA Time AIR REST AO 0/0 (70) SA 07:45:34 ECG 07:48:49 AO 95/73 (86) 08:06:58 AO 103/77 (90) 08:12:45 LV 131/5, 9 08:16:39 LV 128/5, 27 08:16:46 LVp 135/4, 28 08:16:52 AOp 123/76 (97) 08:16:57 AIR REST 08:58:59 Signed By Wayne Singleton MD On 11/08/2021 15:01:27 Wayne Singleton MD
--- NOTE | 2021-11-08 15:02 | PCM.PN.CARD ---
Subjective Subjective The patient is status post diagnostic cardiac catheterization which led to RCA PTCA/stent procedure. He appears to be resting comfortably at this time. Objective Data Vital Signs: Vital Signs Temp Pulse Resp BP Pulse Ox O2 Del Method 97.6 F L 80 15 133/86 H 99 Room Air 11/08/21 12:46 11/08/21 14:50 11/08/21 14:50 11/08/21 14:50 11/08/21 14:50 11/08/21 14:50 Oxygen Delivery Method Room Air Weight: 281 lb 4.957 oz Body Mass Index (BMI) 35.2 Intake & Output: Intake and Output for Last 24 Hours 11/06/21 11/07/21 11/08/21 23:59 23:59 23:59 Intake Total 722.35 / 1322.35 1080.6 / 1080.6 Balance 722.35 / 1322.35 1080.6 / 1080.6 Lab / Micro Data Result Diagrams: 11/08/21 03:15 11/08/21 03:15 Labs: Laboratory Results - last 24 hr 11/07/21 13:10: Hemoglobin A1c 5.4 11/07/21 15:05: Magnesium 1.9, Troponin I High Sens 3624 H*, TSH 1.29 11/07/21 20:15: Troponin I [place] Sens 23868 H* 11/07/21 20:15: APTT 50.8 H 11/08/21 03:15: WBC 16.0 H, RBC 5.12, Hgb 15.9, Hct 45.8, MCV 89.5, MCH 31.1, MCHC 34.7, RDW Std Deviation 42.3, RDW Coeff of Yeny 12.8, Plt Count 283, MPV 8.8, Immature Gran % (Auto) 0.400, Neut % (Auto) 68.9, Lymph % (Auto) 20.6, [place] % (Auto) 8.7, Eos % (Auto) 1.0, Baso % (Auto) 0.4, Absolute Neuts (auto) 11.0 H, Absolute Lymphs (auto) 3.28, Nucleated RBC % 0 11/08/21 03:15: Sodium 136, Potassium 4.0, Chloride 103, Carbon Dioxide 26.0, Anion Gap 7, BUN 13, Creatinine 0.74, Estim Creat Clear Calc 137.98, Est GFR (MDRD) Af Amer 142, Est GFR (MDRD) Non-Af 117, BUN/Creatinine Ratio 17.6, Glucose 117 H, Calcium 9.0, Triglycerides 234 H, Cholesterol 154, LDL Cholesterol 77, VLDL Cholesterol 47 H, HDL Cholesterol 30 L 11/08/21 03:15: APTT 42.1 H Cardiology Labs/Tests 11/07/21 13:10: Hemoglobin A1c 5.4 11/07/21 15:05: Magnesium 1.9 11/07/21 20:15: APTT 50.8 H 11/08/21 03:15: WBC 16.0 H, RBC 5.12, Hgb 15.9, Hct 45.8, MCV 89.5, MCH 31.1, MCHC 34.7, Plt Count 283, MPV 8.8, Immature Gran % (Auto) 0.400, Neut % (Auto) 68.9, Lymph % (Auto) 20.6, [place] % (Auto) 8.7, Eos % (Auto) 1.0, Baso % (Auto) 0.4, Absolute Neuts (auto) 11.0 H, Nucleated RBC % 0 11/08/21 03:15: Sodium 136, Potassium 4.0, Chloride 103, Carbon Dioxide 26.0, Anion Gap 7, BUN 13, Creatinine 0.74, Est GFR (MDRD) Af Amer 142, Est GFR (MDRD) Non-Af 117, BUN/Creatinine Ratio 17.6, Glucose 117 H, Calcium 9.0, Triglycerides 234 H, Cholesterol 154, LDL Cholesterol 77, VLDL Cholesterol 47 H, HDL Cholesterol 30 L 11/08/21 03:15: APTT 42.1 H Rhythm: Sinus rhythm Cardiac Cath: CONCLUSIONS Normal Left Ventricular End Diastolic Pressure [place] Multivessel CAD RECOMMENDATIONS Risk factor modification Medical therapy Consider further catheter based diagnostic evaluation by interventional cardiology Case discussed / reviewed with Dr. Mills on intervnetional cardiology DESCRIPTION OF? PROCEDURE The patient arrived to the procedure lab. The risks and benefits of the procedure as well as a full description of our services here and current unavailability of surgical backup were fully explained to the patient and/or their significant other prior to the catheterization. The Timeout was completed, verifying the correct patient and procedure. The patient's procedural site was prepped and draped in the usual fashion. Local anesthetic was given subcutaneously to right radial region with Lidocaine 2%. Using a modified Seldinger technique, arterial access was obtained via the right radial artery, a 6Fr sheath was inserted., arterial access was obtained via the right radial artery, a 6Fr 23 cm sheath was inserted. Left Coronary Artery selective angiography was performed in multiple views using a 5 Fr. 4.0 [place] catheter. Right Coronary Artery selective angiography was then performed in multiple views using a 5 Fr. 4.0 [place] catheter. LV to AO pullback pressures were then recorded.The arterial sheath was pulled and a TR Band was applied for hemostasis CORONARY ANGIOGRAPHY DOMINANCE:? Right Dominant LEFT HEART ASSESSMENT Left Ventricular Ejection Fraction: Not assessed Normal Left Ventricular End Diastolic Pressure LVEDP: 9 mmHg LEFT MAIN: Angiographically normal LEFT ANTERIOR DESCENDING ARTERY: PROX LAD: Mild calcification, 25 % Stenosis MID LAD: 95 % Stenosis CIRCUMFLEX ARTERY: PROX CIRC: Mild luminal irregularities, 50 % Stenosis RAMUS: Mild luminal irregularities RIGHT CORONARY ARTERY: PROX RCA: is occluded (possible thrombus) COLLATERAL FLOW: Collateral flow from Left to Right Radiography Diagnostic Testing: Radiology Impression Echocardiogram 11/07/21 14:54 Interpretation Summary The study was technically difficult. Contrast injection was performed. Based upon the 2D echocardiographic and contrast enhanced images obtained there appears to be grossly normal left ventricular size, left ventricular regional wall motion abnormality, overall preserved LV systolic function. The estimated ejection fraction is 65 %. Trivial mitral valve insufficiency. Trivial tricuspid valve insufficiency. Unable to estimate RV systolic pressure/pulmonary artery pressure due to technically difficult study. Unable to assess diastolic dysfunction. Ordering Physician: Meera Butterfield Referring Physician: TIAGO PCP Performed By: Maria L Menjivar RDCS, RVT Physical Exam Const alert, oriented x3, no apparent distress and healthy appearing Orientation / Consciousness: awake HEENT normocephalic, head/scalp atraumatic and hearing grossly normal bilaterally Eyes PERRL, EOMs intact bilaterally, conjunctivae normal and no scleral icterus Neck full ROM, supple and no JVD Carotids: normal carotid upstroke Resp normal respiratory effort and clear to auscultation bilaterally Cardio regular rate, regular rhythm, S1 normal heart sound and S2 normal heart sound GI normal to inspection, nondistended, normoactive bowel sounds Extremity no pedal edema Extremity Narrative: Findings potentially compatible with psoriasis Right radial artery: Pulses: 2+/4+; no bruit; no hematoma Skin Skin Narrative: Findings potentially compatible with psoriasis Psych mental status grossly normal Assessment & Plan Assessment/Plan (1) Non-STEMI (non-ST elevated myocardial infarction): PLAN: The patient presents with signs and objective findings compatible with an acute non-ST segment elevation [place]. He has been evaluated with cardiac enzymes and ECGs. He is undergone evaluation with a transthoracic echocardiogram. He has now undergone further evaluation with a diagnostic cardiac catheterization. This led to the diagnosis of angiographically significant appearing CAD especially in the LAD and RCA distributions. The RCA distribution appeared to be proximally occluded with possible thrombus. This led to a subsequent PCI/RENA procedure by interventional cardiology. At the present time the patient should continue medical management as deemed appropriate. He will be monitored for any post procedure concerning issues. He will be considered for a staged PCI of the LAD. (2) Atrial fibrillation with rapid ventricular response: PLAN: The patient presented with findings compatible with atrial fibrillation. Status post medical therapy with rate control he is demonstrated spontaneous conversion to sinus rhythm. He will continue medical management. (3) HTN (hypertension): PLAN: The patient reports having findings at nonphysician facilities compatible with hypertension. This does increase his cardiovascular risks This may be a contributing factor to his atrial dysrhythmia. At the present time he will continue to have his blood pressure followed. His medications can be adjusted to assist with blood pressure control. Addt'l Comments The patient's case has been discussed and reviewed with the patient and Dr. Mills of interventional cardiology. This note was generated using a voice recognition system and there may be incorrect words, spelling or punctuation that were not noted when reviewing the office note prior to saving. Procedure Criteria Type of Procedure Procedure Type: Elective Elective Risks - COVID COVID Risk Discussion: The surgeon/proceduralist and patient have discussed in detail the risk of exposure to and/or potential harm posed by the COVID-19 virus with having a surgery/procedure at this time versus the risk of delaying the surgery/procedure. It is not possible to know either the risk of delaying the surgery or procedure or chance of getting an infection with perfect accuracy, but a joint decision was made between the patient and the surgeon/proceduralist to proceed at this time with the scheduled surgery/procedure as indicated on the consent form.
[2021-11-08] MEDS: TICAGRELOR 90 MG TABLET PO (21:25)
[2021-11-08] MEDS: Atorvastatin Calcium 80 MG Tablet PO (21:25)
[2021-11-09] VITALS (8 sets, daily range): BP systolic 106–126; BP diastolic 66–73; PULSE 77–85; RESP 16; TEMP 36.1–36.4; O2SAT 96–98
[2021-11-09 04:10] LABS: Hematocrit 44.7 % (40-54); Hemoglobin 15.1 g/dL (13.0-16.5); Mean Corp Hgb Conc 33.8 g/dL (32-36); Mean Corpuscular Hgb 30.7 pg (27.0-32.0); Mean Corpuscular Volume 90.9 fL (80-94); Mean Platelet Vol. 8.4 fl (6.2-12.0); Platelet Count 254 K/mm3 (150-450); RBC Distribution Width CV 12.8 % (11.6-14.6); RBC Distribution Width SD 42.7 fl (35.1-43.9); Red Blood Count 4.92 M/mm3 (4.6-6.2); White Blood Count 12.6 K/mm3 (4.4-11.0)
[2021-11-09 04:30] LABS: ALB/GLOB Ratio 0.9 RATIO (0.9-2.4); AST(SGOT) 50 U/L (15-37); Alanine Aminotransfer ALT/SGPT 45 U/L (16-61); Albumin, Serum 3.5 g/dL (3.2-5.0); Alkaline Phosphatase 92 U/L (45-117); Anion Gap 8 (5-15); BUN 15 mg/dL (7-18); Chloride 104 mmol/L (98-107); Creatinine, Serum 0.79 mg/dL (0.70-1.30); EST Glomerular Filtration Rate 109 mL/min (>60); Est Glom Filt Rate - Afr Amer 132 mL/min (>60); Estimated Creatinine Clearance 129.25 ml/min; Globulin 3.8 g/dL (2.2-4.2); Glucose 111 mg/dL (74-106); Potassium 4.1 mmol/L (3.5-5.1); Protein, Total 7.3 g/dL (6.4-8.2); Sodium Level 138 mmol/L (136-145)
[2021-11-09] MEDS: Hydrocortisone 2.5% Crm 1 APPLIC TOPICAL (04:45)
--- NOTE | 2021-11-09 05:55 | ECHOLC_ITS ---
Reason For Study: CAD/ASHD Procedure This was a limited 2D transthoracic echocardiogram. The study was technically difficult. Contrast injection was performed. Exam performed portable in patient room. Left Ventricle Based upon the 2D echocardiographic and contrast enhanced images obtained there appears to be grossly normal left ventricular size, left ventricular regional wall motion abnormality, and overall preserved LV systolic function. The estimated ejection fraction is 65 %. Unable to assess diastolic dysfunction. Right Ventricle Normal RV size. Normal systolic function. Atria Normal left atrium. Normal right atrium. Mitral Valve There is no mitral annular calcification. Normal mitral valve. Tricuspid Valve Normal tricuspid valve. Aortic Valve The aortic valve is not well visualized. Pulmonic Valve The pulmonic valve is not well visualized. Great Vessels Normal sized aortic root. Pericardium/Pleural No pericardial effusion. Medication Diluted definity 3.0ml given slow IV push to enhance endocardial definition. MMode/2D Measurements & Calculations Ao root diam: 3.5 cm LAV(MOD-bp): 74.0 ml LA A4 area: 22.4 cm2 LAV(MOD-bp) Indexed: 29.2 ml/m2 LAV(MOD-sp2): 71.1 ml LAV(MOD-sp4): 71.5 ml RA A4 area: 16.4 cm2 ECHO/Echo Limited w/Contrast Interpretation Summary The study was technically difficult. Contrast injection was performed. Based upon the 2D echocardiographic and contrast enhanced images obtained there appears to be grossly normal left ventricular size, left ventricular regional wall motion abn ormality, and overall preserved LV systolic function. The estimated ejection fraction is 65 %. No pericardial effusion. Unable to assess diastolic dysfunction. Ordering Physician: Wayne Singleton Referring Physician: NO PCP Performed By: Maria L Menjivar, COREY, RVT
[2021-11-09] MEDS: TICAGRELOR 90 MG TABLET PO (08:48)
[2021-11-09] MEDS: Lisinopril 5 MG Tablet PO (08:48)
[2021-11-09] MEDS: Aspirin E.C. 81 MG Tablet PO (08:48)
[2021-11-09] MEDS: Metoprolol Tartrate 25 MG Tablet PO (08:49)
--- NOTE | 2021-11-09 10:21 | DCINST_ITS ---
Discharge Instructions Diet Discharge Diet: Low fat / Low cholesterol and 2000 mg Sodium Diet Activity Additional Activity Instructions:: Follow post cath instructions. No shower for 72 hours. No lifting greater than 10 pounds for 1 week. Dressing / Incision Call your doctor if your incision/area has: Continuous Slow Oozing, Sudden Increased Bleeding, Increased Pain/ Swelling, Increased Redness, Foul Smelling Discharge and Swelling at the incision site Call your doctor if you observe: Shortness of breath, Dizziness and Chest pain Follow Up Care Test Results: Test results from this visit will be discussed in further detail at your follow- up appointment, if applicable. Discharge Plan Admission Admit Date/Time: 11/07/21 14:35 Primary Reason for Your Visit: NSTEMI, a.fib Attending Provider: Dagoberto Lang Primary Care Provider: Care Physician,Malu Primary Consulting Providers: Wayne Singleton ; Joselo Mcneal Instructions Forms: Work / School Excuse Additional Instructions / Restrictions: You are scheduled for outpatient cath 11/17/2021. Hold Eliquis 2 days prior to heart cath. Discharge Orders/Prescriptions Prescriptions: New aspirin 81 mg Tablet,Delayed Release (Dr/Ec) 81 mg PO BREAKFAST 30 Days Qty: 30 0RF atorvastatin 80 mg Tablet 80 mg PO QHS 30 Days Qty: 30 0RF lisinopril 5 mg Tablet 5 mg PO BID 30 Days Qty: 60 0RF metoprolol tartrate 25 mg Tablet 25 mg PO BID 30 Days Qty: 60 0RF Brilinta 90 mg Tablet 90 mg PO BID 30 Days Qty: 60 0RF Eliquis 5 mg tablet 5 mg PO BID Qty: 60 0RF Referrals / Follow Up: Wayne Singleton MD [Med Staff - Active Staff] - See Referral Note (Return for outpatient cath 11/17/21) Care Physician,No Primary [Primary Care Provider] - In 1 Week Disposition Disposition (needs filled in before D/C Order can be placed): Home, Self Care
--- NOTE | 2021-11-09 10:29 | CL.I_ITS ---
Patient Name: ALLEY GUPTA Study Date: 11/08/2021 Performing: Patricio Mills MD Ht: 75 inches 190.5 cm : 1970 Wt: 281.7 lbs 127.6 kg Age: 51 Gender: male BSA: 2.54 PROCEDURE(S) PERFORMED IC12-(65321/C9600)RENA W/WO PTCA, SINGLE CORONARY ARTERY CLINICAL PROFILE AND CO-MORBIDITIES Indications: ACS <= 24 hrs, Suspected CAD Heart Failure: None Stress/Imaging Stress/Image Study Performed: No Angina Classification Anginal Classification w/in 2 Weeks: CCS IV CAD Presentations: Non-STEMI. CONCLUSIONS Successful RENA to proximal and mid RCA RECOMMENDATIONS DESCRIPTION OF PROCEDURE The patient arrived to the procedure lab. The risks and benefits of the procedure as well as a full description of our services here and current unavailability of surgical backup were fully explained to the patient and/or their significant other prior to the catheterization. The Timeout was completed, verifying the correct patient and procedure. The patient's procedural site was prepped and draped in the usual fashion. Local anesthetic was given subcutaneously to right radial region with Lidocaine 2% Using a modified Seldinger technique,arterial access was obtained via the right radial artery, a 6Fr sheath was inserted., arterial access was obtained via the right radial artery, a 6Fr 23 cm sheath was inserted. Left Coronary Artery selective angiography was performed in multiple views using a 5 Fr. 4.0 Dyke catheter. Right Coronary Artery selective angiography was then performed in multiple views using a 5 Fr. 4.0 Dyke catheter. LV to AO pullback pressures were then recorded.The images were reviewed and options discussed. A decision was then made to proceed with an Intervention, IVUS or other adjunct procedure. jr4 Guide catheter was inserted and engaged into the RCA. bmw Guide wire was advanced to the RCA. Priority One inserted Pass # 1 Priority One Removed emerge 2.00 x 12 Balloon catheter was advanced across lesion in the right coronary, proximal. PTCA balloon inflated at 6 atms for 10 secs. PTCA balloon inflated at 8 atms for 10 secs. emerge 2.00 x 15 Balloon catheter was advanced across lesion in the right coronary, proximal. PTCA balloon inflated at 8 atms for 10 secs. PTCA balloon inflated at 8 atms for 15 secs. PTCA balloon inflated at 8 atms for 8 secs. PTCA balloon inflated at 8 atms for 12 secs. PTCA balloon inflated at 6 atms for 5 secs. PTCA balloon inflated at 6 atms for 13 secs. PTCA balloon inflated at 6 atms for 8 secs. PTCA balloon inflated at 6 atms for 6 secs. PTCA balloon inflated at 6 atms for 6 secs. PTCA balloon inflated at 6 atms for 5 secs. PTCA balloon inflated at 6 atms for 5 secs. PTCA balloon inflated at 6 atms for 6 secs. PTCA balloon inflated at 6 atms for 5 secs. PTCA balloon inflated at 6 atms for 6 secs. PTCA balloon inflated at 6 atms for 8 secs. PTCA balloon inflated at 6 atms for 5 secs. Angiogram performed post balloon dilatation. emerge 3.5 x 20 Balloon catheter was advanced across lesion in the right coronary, proximal. PTCA balloon inflated at 6 atms for 20 secs. PTCA balloon inflated at 6 atms for 8 secs. PTCA balloon inflated at 6 atms for 3 secs. PTCA balloon inflated at 6 atms for 6 secs. PTCA balloon inflated at 6 atms for 8 secs. PTCA balloon inflated at 6 atms for 7 secs. PTCA balloon inflated at 6 atms for 6 secs. Angiogram performed post balloon dilatation. Priority One inserted injecting dye through the catheter was advanced across lesion in the right coronary, mid. PTCA balloon inflated at 6 atms for 10 secs. PTCA balloon inflated at 6 atms for 10 secs. PTCA balloon inflated at 6 atms for 8 secs. PTCA balloon inflated at 6 atms for 6 secs. PTCA balloon inflated at 6 atms for 5 secs. PTCA balloon inflated at 6 atms for 6 secs. PTCA balloon inflated at 6 atms for 6 secs. PTCA balloon inflated at 6 atms for 6 secs. PTCA balloon inflated at 6 atms for 6 secs. osiro 3.0 x 30 Drug Eluting stent was advanced across the lesion in the right coronary, mid. osiro 3.0 x 40 Drug Eluting stent was advanced across the lesion in the right coronary, proximal. orsiro 3.5 x 40 Drug Eluting stent was advanced across the lesion in the right coronary, proximal. Angiogram performed post stent deployment. orsiro 4.0 x 26 Drug Eluting stent was advanced across the lesion in the right coronary, proximal. Angiogram performed post stent deployment. nc emerge 3.5 x 20 Balloon catheter was inserted post stent. Angiogram performed post balloon dilatation. The arterial sheath was pulled and a TR Band was applied for hemostasis INTERVENTION INFORMATION LESION SITE: RCA (Proximal) Lesion Complexity: High/C, chronic total occlusion: Yes, lesion at bifurcation: No, thrombus present: Yes, lesion length: 40 mm, culprit lesion: Yes, Previously treated lesion: No Pre Stenosis: 100 % Pre intervention SUZANNA flow: 0 PROCEDURE: Drug Eluting Stent with pre and post dilatation, Thrombectomy Post Stenosis: 0 % Post intervention SUZANNA flow: 3 Lesion Devices: Yoan Sci EMERGE MR 2.00x12 BALLOON Yoan Sci EMERGE MR 2.00x15 BALLOON Yoan Sci EMERGE MR 3.50x20 BALLOON Yoan Sci EMERGE MR 2.50x20 BALLOON Biotronik Orsiro [place] MR RENA 3.5x40 Biotronik Orsiro [place] MR RENA 4.0x26 Biotronik Orsiro [place] MR RENA 3.0x40 Yoan Sci [place] EMERGE MR 3.50x20 BALLOON LESION SITE: RCA (Mid) Lesion Complexity: High/C, chronic total occlusion: Yes, lesion at bifurcation: No, thrombus present: No, lesion length: 50 mm, culprit lesion: Yes, Previously treated lesion: No Pre Stenosis: 100 % Pre intervention SUZANNA flow: 0 PROCEDURE: Drug Eluting Stent with pre and post dilatation Post Stenosis: 0 % Post intervention SUZANNA flow: 3 Lesion Devices: Biotronik 4Bloxiro [place] MR RENA 3.0x30 Yoan Sci NC EMERGE MR 3.50x20 BALLOON COMPLICATIONS No Complications PROCEDURE MEDICATIONS Versed 1 mg IV Fentanyl 50 mcg IV Versed 1 mg IV Fentanyl 50 mcg IV Versed 1 mg IV Fentanyl 50 mcg IV Fentanyl 50 mcg IV Fentanyl 50 mcg IV Fentanyl 25 mcg IV Oxygen: 2 L/min via nasal cannula Brilinta 180 mg PO @ 11/08/2021 11:53:00 Heparin given IA 11/08/2021 08:05:24 Heparin 8000 unit(s) IV 11/08/2021 09:54:03 Heparin 3000 unit(s) IV 11/08/2021 10:32:39 Heparin 2000 unit(s) IV 11/08/2021 11:24:20 Verapamil 2.5mg, Ntg 100mcgs, 3000 units of Heparin given IA 11/08/2021 08:05:24 SUMMARY OF HEMODYNAMIC DATA Time AIR REST AO 0/0 (70) SA 07:45:34 ECG 07:48:49 AO 95/73 (86) 08:06:58 AO 103/77 (90) 08:12:45 LV 131/5, 9 08:16:39 LV 128/5, 27 08:16:46 LVp 135/4, 28 08:16:52 AOp 123/76 (97) 08:16:57 AIR REST 08:58:59 Signed By Patricio Mills MD On 11/09/2021 10:29:00 Patricio Mills MD
--- NOTE | 2021-11-09 12:15 | EKG12_ITS ---
Test Reason : SERIES Blood Pressure : / mmHG Vent. Rate : 079 BPM Atrial Rate : 079 BPM P-R Int : 126 ms QRS Dur : 090 ms QT Int : 364 ms P-R-T Axes : 041 055 -57 degrees QTc Int : 417 ms Normal sinus rhythm Nonspecific T wave abnormality Abnormal ECG When compared with ECG of 08-NOV-2021 12:46, No significant change was found Confirmed by MARCEL RAMOS, FLORENTINO ([id number]), videotape editor [employer] ([id number]) on 11/11/2021 2:20:18 PM Referred By: MARIA M Confirmed By:PURA ROD MD
--- NOTE | 2021-11-09 12:34 | PN.CARD_ITS ---
Subjective Subjective The patient is awake and alert. He has been up and ambulating in his room. He states he feels 20 years younger . Objective Data Vital Signs: Vital Signs Temp Pulse Resp BP Pulse Ox O2 Del Method 97.6 F L 77 16 110/69 96 Room Air 11/09/21 08:30 11/09/21 08:49 11/09/21 08:30 11/09/21 08:49 11/09/21 08:35 11/09/21 08:35 Oxygen Delivery Method Room Air Weight: 281 lb 4.957 oz Body Mass Index (BMI) 35.2 Intake & Output: Intake and Output for Last 24 Hours 11/07/21 11/08/21 11/09/21 23:59 23:59 23:59 Intake Total 722.35 / 1322.35 1554.1 / 1554.1 0 / 0 Balance 722.35 / 1322.35 1554.1 / 1554.1 0 / 0 Lab / Micro Data Result Diagrams: 11/09/21 04:03 11/09/21 04:03 Labs: Laboratory Results - last 24 hr 11/09/21 04:03: WBC 12.6 H, RBC 4.92, Hgb 15.1, Hct 44.7, MCV 90.9, MCH 30.7, MCHC 33.8, RDW Std Deviation 42.7, RDW Coeff of Yeny 12.8, Plt Count 254, MPV 8.4 11/09/21 04:03: Sodium 138, Potassium 4.1, Chloride 104, Carbon Dioxide 26.0, Anion Gap 8, BUN 15, Creatinine 0.79, Estim Creat Clear Calc 129.25, Est GFR (MDRD) Af Amer 132, Est GFR (MDRD) Non-Af 109, BUN/Creatinine Ratio 19.0, Glucose 111 H, Calcium 9.0, Total Bilirubin 0.70, AST 50 H, ALT 45, Alkaline Phosphatase 92, Total Protein 7.3, Albumin 3.5, Globulin 3.8, Albumin/Globulin Ratio 0.9 Cardiology Labs/Tests 11/09/21 04:03: WBC 12.6 H, RBC 4.92, Hgb 15.1, Hct 44.7, MCV 90.9, MCH 30.7, MCHC 33.8, Plt Count 254, MPV 8.4 11/09/21 04:03: Sodium 138, Potassium 4.1, Chloride 104, Carbon Dioxide 26.0, Anion Gap 8, BUN 15, Creatinine 0.79, Est GFR (MDRD) Af Amer 132, Est GFR (MDRD) Non-Af 109, BUN/Creatinine Ratio 19.0, Glucose 111 H, Calcium 9.0, Total Bilirubin 0.70 Rhythm: Sinus rhythm; PVC Radiography Diagnostic Testing: Radiology Impression Echocardiogram 11/08/21 11:54 Interpretation Summary Limited study done in the forestry laborer to look for pericardial effusion did not reveal any evidence of pericardial effusion. Ordering Physician: Jessica Mills Performed By: Kalani Flores RDCS Physical Exam Const alert, oriented x3, no apparent distress and healthy appearing Orientation / Consciousness: awake HEENT normocephalic, head/scalp atraumatic and hearing grossly normal bilaterally Eyes PERRL, EOMs intact bilaterally, conjunctivae normal and no scleral icterus Neck full ROM, supple and no JVD Carotids: normal carotid upstroke Resp normal respiratory effort and clear to auscultation bilaterally Cardio regular rate, regular rhythm, S1 normal heart sound and S2 normal heart sound GI normal to inspection, nondistended, normoactive bowel sounds Extremity no pedal edema Extremity Narrative: Findings potentially compatible with psoriasis Right radial artery: Pulses: 2+/4+; no bruit; no hematoma Skin Skin Narrative: Findings potentially compatible with psoriasis Psych mental status grossly normal Assessment & Plan Assessment/Plan (1) Non-STEMI (non-ST elevated myocardial infarction): PLAN: The patient presents with signs and objective findings compatible with an acute non-ST segment elevation CT. He has been evaluated with cardiac enzymes and ECGs. He is undergone evaluation with a transthoracic echocardiogram. He has now undergone further evaluation with a diagnostic cardiac catheterization. This led to the diagnosis of angiographically significant appearing CAD especially in the LAD and RCA distributions. The RCA distribution appeared to be proximally occluded with possible thrombus. This led to a subsequent PCI/RENA procedure by interventional cardiology. At the present time the patient should continue medical management as deemed appropriate. He will be monitored for any post procedure concerning issues. He will be considered for a staged PCI of the LAD. With respect to a staged PCI to the LAD, this was discussed with Dr. Mills of interventional cardiology, with the recommendation to allow the patient to continue his medical management and as long as stable leave the hospital and return in the near future for a staged PCI of the LAD system. In the interim and the patient would need to refrain from any type of strenuous activity at home, at work, etc. If this cannot be accomplished at work then he may have to request a temporary leave of absence pending his ongoing cardiac evaluation and care. (2) CAD (coronary artery disease): PLAN: The patient has officially been diagnosed with underlying atherosclerotic coronary artery disease. He is undergone noninvasive and invasive valuation. He will continue medical therapy with plans for a future staged LAD PCI procedure. (3) S/P PTCA (percutaneous transluminal coronary angioplasty): PLAN: The patient underwent PTCA/stent of the RCA as previously noted. At the moment he will continue medical therapy. He will return for a future staged procedure to the LAD distribution. (4) Atrial fibrillation with rapid ventricular response: PLAN: The patient presented with findings compatible with atrial fibrillation. Status post medical therapy with rate control he is demonstrated spontaneous conversion to sinus rhythm. He will continue medical management. This will include anticoagulant therapy which will need to be interrupted for a staged PCI procedure. (5) HTN (hypertension): PLAN: The patient reports having findings at nonphysician facilities compatible with hypertension. This does increase his cardiovascular risks This may be a contributing factor to his atrial dysrhythmia. At the present time he will continue to have his blood pressure followed. His medications can be adjusted to assist with blood pressure control. Addt'l Comments The above was discussed and reviewed with the patient and the [facility] hospitalist team. This note was generated using a voice recognition system and there may be incorrect words, spelling or punctuation that were not noted when reviewing the office note prior to saving. Procedure Criteria Type of Procedure Procedure Type: Elective Elective Risks - COVID COVID Risk Discussion: The surgeon/proceduralist and patient have discussed in detail the risk of exposure to and/or potential harm posed by the COVID-19 virus with having a surgery/procedure at this time versus the risk of delaying the surgery/procedure. It is not possible to know either the risk of delaying the surgery or procedure or chance of getting an infection with perfect accuracy, but a joint decision was made between the patient and the surgeon/proceduralist to proceed at this time with the scheduled surgery/procedure as indicated on the consent form.
--- NOTE | 2021-11-09 13:12 | DS.PCM_ITS ---
Documented by User: Meera Butterfield NP, OPTICS MANUFACTURING TECHNICIAN-C 11/09/21 13:18 Providers Date of Admission: 11/07/21 Date of Discharge: 11/09/21 Primary Care Physician: Malu Primary [facility] Phys Consultations 11/07/21 14:54 Consult: Cardiology Routine Consulting Provider: Wayne Singleton Reason for Consult: NSTEMI, afib w RVR EMERGENT Consult: No MD Notified: Yes Date Notified: 11/07/21 Time Notified: 14:43 Method of Notification: Verbal Comments:: Notified by ED Reason For Visit: NSTEMI, A.FIB RVR Diagnosis Discharge Diagnosis (1) Non-STEMI (non-ST elevated myocardial infarction): Status: Acute Code(s): I21.4 - Non-ST elevation (NSTEMI) myocardial infarction (2) CAD (coronary artery disease): Status: Acute Code(s): I25.10 - Atherosclerotic heart disease of false pass coronary artery without angina pectoris (3) S/P PTCA (percutaneous transluminal coronary angioplasty): Status: Acute Code(s): Z98.61 - Coronary angioplasty status (4) Atrial fibrillation with rapid ventricular response: Status: Acute Code(s): I48.91 - Unspecified atrial fibrillation (5) HTN (hypertension): Status: Chronic Code(s): I10 - Essential (primary) hypertension Medications at Discharge Home Medications apixaban 5 mg tablet (Eliquis) 5 mg PO BID #60 tabs 11/09/21 aspirin 81 mg tablet,delayed release 81 mg PO BREAKFAST 30 days #30 tabs 11/09/21 atorvastatin 80 mg tablet 80 mg PO QHS 30 days #30 tabs 11/09/21 lisinopril 5 mg tablet 5 mg PO BID 30 days #60 tabs 11/09/21 metoprolol tartrate 25 mg tablet 25 mg PO BID 30 days #60 tabs 11/09/21 ticagrelor 90 mg tablet (Brilinta) 90 mg PO BID 30 days #60 tabs 11/09/21 Hospital Course Operations None Procedures 2-D Echocardiogram and Cardiac catheterization Summary of Care Provided Hospital Course: Patient is a 51-year-old male admitted 11/07/2021 due to chest pain. 1. NSTEMI-cardiology consulted.? Patient underwent heart cath which demonstrated significant CAD involving the LAD and RCA distribution with RCA proximally occluded with possible thrombus. Patient underwent stent x4 to RCA.? He will require staged PCI to LAD and is scheduled to return on 11/17/2021. On aspirin, metoprolol, lisinopril, Brilinta, statin. Follow-up with cardiology as scheduled. 2.? New onset atrial fibrillation with RVR-Cardiology consulted during admission. Echocardiogram with EF 65%.? TSH, mag within normal limits.? Con verted to sinus rhythm.? Continue metoprolol.? Initiate Eliquis 5 mg twice daily at discharge. Patient will need to hold for 2 days prior to heart cath which is scheduled as outpatient on 11/17/2021. 3. Hyperglycemia-reactive.? Hemoglobin A1c 5.4%. 4. Former tobacco use-encouraged continued cessation. 5. Obesity-encouraged diet and lifestyle modifications. Physical Exam Const alert, oriented x3 and no apparent distress Nutritional Appearance: obese HEENT normocephalic and moist oral mucous membranes Eyes PERRL, EOMs intact bilaterally and conjunctivae normal Neck no lymphadenopathy Resp normal respiratory effort and clear to auscultation bilaterally Cardio regular rate, regular rhythm and no murmurs Peripheral Pulses: pulses 2+ throughout GI normal to inspection, nondistended, normoactive bowel sounds, non-tender and non-distended Extremity normal to inspection Skin no rashes or lesions noted Lesions: no lesions Rashes: no rashes Trauma: no lacerations or abrasions Neuro CN's II-XII intact bilaterally, no focal motor deficits, no sensory deficits noted and deep tendon reflexes 2+ bilaterally Psych mental status grossly normal and affect normal Patient seen and examined prior to discharge. Physical assessment as noted above. Patient is stable for discharge with follow up recommendations as noted above. This patient was seen by TISHA Faulkner under the supervision of Dr. Lang. Time spent examining patient, reviewing data and subsequent management of care: 22 minutes Weight / BMI Weight Weight: 281 lb 4.957 oz Body Mass Index (BMI) 35.2 ABG / Lab / Microbiology Data Result Diagrams: 11/09/21 04:03 11/09/21 04:03 Laboratory: Laboratory Results - last 24 hr 11/09/21 04:03: WBC 12.6 H, RBC 4.92, Hgb 15.1, Hct 44.7, MCV 90.9, MCH 30.7, MCHC 33.8, RDW Std Deviation 42.7, RDW Coeff of Yeny 12.8, Plt Count 254, MPV 8.4 11/09/21 04:03: Sodium 138, Potassium 4.1, Chloride 104, Carbon Dioxide 26.0, Anion Gap 8, BUN 15, Creatinine 0.79, Estim Creat Clear Calc 129.25, Est GFR (MDRD) Af Amer 132, Est GFR (MDRD) Non-Af 109, BUN/Creatinine Ratio 19.0, Glucose 111 H, Calcium 9.0, Total Bilirubin 0.70, AST 50 H, ALT 45, Alkaline Phosphatase 92, Total Protein 7.3, Albumin 3.5, Globulin 3.8, Albumin/Globulin Ratio 0.9 Radiography Diagnostic Testing: Radiology Impression Echocardiogram 11/08/21 11:54 Interpretation Summary Limited study done in the laborer vineyard to look for pericardial effusion did not reveal any evidence of pericardial effusion. Ordering Physician: Jessica Mills Performed By: Kalani Flores RDCS D/C Instructions Discharge Diet: Low fat / Low cholesterol and 2000 mg Sodium Diet Additional Activity Instructions: Follow post cath instructions. No shower for 72 hours. No lifting greater than 10 pounds for 1 week. Call your doctor if your incision/area has: Continuous Slow Oozing, Sudden Increased Bleeding, Increased Pain/ Swelling, Increased Redness, Foul Smelling Discharge and Swelling at the incision site Call your doctor if you observe: Shortness of breath, Dizziness and Chest pain Meaningful Use Info Meaningful Use Diagnoses (Choose all that apply): AMI AMI/Post PCI/Angioplasty Aspirin given w/in 24hrs of arrival?: Yes ASA at discharge?: Yes Statins at discharge?: Yes Regulo/ARB at discharge?: Yes Beta Les at discharge?: Yes Done w/ Acute IA measure.: Yes Discharge Plan Admission Admit Date/Time: 11/07/21 14:35 Primary Reason for Your Visit: NSTEMI, a.fib Attending Provider: Dagoberto Lang Primary Care Provider: Care Physician,No Primary Consulting Providers: Wayne Singleton ; Joselo Mcneal Instructions Forms: Work / School Excuse Additional Instructions / Restrictions: You are scheduled for outpatient cath 11/17/2021. Hold Eliquis 2 days prior to he art cath. Discharge Orders/Prescriptions Prescriptions: New aspirin 81 mg Tablet,Delayed Release (Dr/Ec) 81 mg PO BREAKFAST 30 Days Qty: 30 0RF atorvastatin 80 mg Tablet 80 mg PO QHS 30 Days Qty: 30 0RF lisinopril 5 mg Tablet 5 mg PO BID 30 Days Qty: 60 0RF metoprolol tartrate 25 mg Tablet 25 mg PO BID 30 Days Qty: 60 0RF Brilinta 90 mg Tablet 90 mg PO BID 30 Days Qty: 60 0RF Eliquis 5 mg tablet 5 mg PO BID Qty: 60 0RF Referrals / Follow Up: Wayne Singleton MD [Med Staff - Active Staff] - See Referral Note (Return for outpatient cath 11/17/21) Care Physician,No Primary [Primary Care Provider] - In 1 Week Disposition Disposition (needs filled in before D/C Order can be placed): Home, Self Care Documented by User: Dr. Dagoberto Lang DO 11/09/21 14:16 Providers Date of Admission: 11/07/21 Reason For Visit: NSTEMI, A.FIB RVR Diagnosis Discharge Diagnosis (1) Non-STEMI (non-ST elevated myocardial infarction): Status: Acute Code(s): I21.4 - Non-ST elevation (NSTEMI) myocardial infarction (2) CAD (coronary artery disease): Status: Acute Code(s): I25.10 - Atherosclerotic heart disease of false pass coronary artery without angina pectoris (3) S/P PTCA (percutaneous transluminal coronary angioplasty): Status: Acute Code(s): Z98.61 - Coronary angioplasty status (4) Atrial fibrillation with rapid ventricular response: Status: Acute Code(s): I48.91 - Unspecified atrial fibrillation (5) HTN (hypertension): Status: Chronic Code(s): I10 - Essential (primary) hypertension Medications at Discharge Home Medications apixaban 5 mg tablet (Eliquis) 5 mg PO BID #60 tabs 11/09/21 aspirin 81 mg tablet,delayed release 81 mg PO BREAKFAST 30 days #30 tabs 11/09/21 atorvastatin 80 mg tablet 80 mg PO QHS 30 days #30 tabs 11/09/21 lisinopril 5 mg tablet 5 mg PO BID 30 days #60 tabs 11/09/21 metoprolol tartrate 25 mg tablet 25 mg PO BID 30 days #60 tabs 11/09/21 ticagrelor 90 mg tablet (Brilinta) 90 mg PO BID 30 days #60 tabs 11/09/21 Hospital Course Summary of Care Provided Hospital Course: Patient is a 51-year-old male admitted 11/07/2021 due to chest pain. 1. NSTEMI-cardiology consulted.? Patient underwent heart cath which demonstrated significant CAD involving the LAD and RCA distribution with RCA proximally occluded with possible thrombus. Patient underwent stent x4 to RCA.? He will require staged PCI to LAD and is scheduled to return on 11/17/2021. On aspirin, metoprolol, lisinopril, Brilinta, statin. Follow-up with cardiology as scheduled. 2.? New onset atrial fibrillation with RVR-Cardiology consulted during admission. Echocardiogram with EF 65%.? TSH, mag within normal limits.? Converted to sinus rhythm.? Continue metoprolol.? Initiate Eliquis 5 mg twice daily at discharge. Patient will need to hold for 2 days prior to heart cath which is scheduled as outpatient on 11/17/2021. 3. Hyperglycemia-reactive.? Hemoglobin A1c 5.4%. 4. Former tobacco use-encouraged continued cessation. 5. Obesity-encouraged diet and lifestyle modifications. Physical Exam Const alert, oriented x3 and no apparent distress Nutritional Appearance: obese HEENT normocephalic and moist oral mucous membranes Eyes PERRL, EOMs intact bilaterally and conjunctivae normal Neck no lymphadenopathy Resp normal respiratory effort and clear to auscultation bilaterally Cardio regular rate, regular rhythm and no murmurs Peripheral Pulses: pulses 2+ throughout GI normal to inspection, nondistended, normoactive bowel sounds, non-tender and non-distended Extremity normal to inspection Skin no rashes or lesions noted Lesions: no lesions Rashes: no rashes Trauma: no lacerations or abrasions Neuro CN's II-XII intact bilaterally, no focal motor deficits, no sensory deficits noted and deep tendon reflexes 2+ bilaterally Psych mental status grossly normal and affect normal Patient seen and examined prior to discharge. Physical assessment as noted above. Patient is stable for discharge with follow up recommendations as noted above. This patient was seen by TISHA Faulkner under the supervision of Dr. Lang. Time spent examining patient, reviewing data and subsequent management of care: 22 minutes Patient seen and examined independently.? Data and vitals reviewed.? I agree with the above note by the nurse practitioner. Feels better than he has in 20 years.? No current chest pain. Patient is no acute distress and afebrile.? Heart rate regular rate and rhythm plus S1-S2 with a murmurs gallops or rubs.? Lungs are clear to auscultation bilaterally.? Abdomen is soft nontender nondistended normal bowel sounds. Assessment and plan 1.? Non-ST elevation myocardial infarction Status post PCI to the RCA.? Will need staged PCI on LAD follow-up with cardiology on November 17..? May be done while patient is inpatient versus outpatient follow-up. Continue with aspirin, atorvastatin and ticagrelor 2.? New onset atrial fibrillation with RVR EF 65% on 2D echocardiogram.? No normal sinus rhythm. Apixaban 5 mg twice daily. We will need to hold 2 days prior to repeat cardiac catheterization. On metoprolol tartrate ABG / Lab / Microbiology Data Result Diagrams: 11/09/21 04:03 11/09/21 04:03 Discharge Plan Admission Admit Date/Time: 11/07/21 14:35 Primary Reason for Your Visit: NSTEMI, a.fib Attending Provider: Dagoberto Lang Primary Care Provider: Care Physician,No Primary Consulting Providers: Wayne Singleton ; Joselo Mcneal Instructions Forms: Work / School Excuse Additional Instructions / Restrictions: You are scheduled for outpatient cath 11/17/2021. Hold Eliquis 2 days prior to heart cath. Discharge Orders/Prescriptions Prescriptions: New aspirin 81 mg Tablet,Delayed Release (Dr/Ec) 81 mg PO BREAKFAST 30 Days Qty: 30 0RF atorvastatin 80 mg Tablet 80 mg PO QHS 30 Days Qty: 30 0RF lisinopril 5 mg Tablet 5 mg PO BID 30 Days Qty: 60 0RF metoprolol tartrate 25 mg Tablet 25 mg PO BID 30 Days Qty: 60 0RF Brilinta 90 mg Tablet 90 mg PO BID 30 Days Qty: 60 0RF Eliquis 5 mg tablet 5 mg PO BID Qty: 60 0RF Referrals / Follow Up: Wayne Singleton MD [Med Staff - Active Staff] - See Referral Note (Return for outpatient cath 11/17/21) Care Physician,No Primary [Primary Care Provider] - In 1 Week Disposition Disposition (needs filled in before D/C Order can be placed): Home, Self Care Charges/Coding Visit Charges Inpatient E&M: 36684 Disch Hosp
--- NOTE | 2021-11-09 13:27 | CASEMGMT ---
Pt to be sent home on Brilinta and Eliquis at discharge and meds e-scribed to [facility] [place] previously. Call to [facility] and per pharmacist, they do not have active insurance card on file for pt. Current [employer] Rx info provided to [facility] and per pharmacist, Brilinta is $25 and Eliquis is $25. Pt updated and provided with Eliquis 30 day free trial/co-pay cards and Brilinta co-pay card. Pt voices no further questions/concerns/needs for discharge. Varsha COWAN CM
== END 2021-11-09 15:55 | disposition home or self-care (01) | DRG 247 ==
LOC: ED 14:23 → PCU 14:52
PROVIDERS: Nurse Practitioner Family; Specialist; Admitting Provider Internal Medicine; Emergency Provider Emergency Medicine
DX: I21.4 Non-ST elevation (NSTEMI) myocardial infarction (principal); E66.01 Morbid (severe) obesity due to excess calories; I48.91 Unspecified atrial fibrillation; I25.10 Atherosclerotic heart disease of native coronary artery without angina pectoris; I10 Essential (primary) hypertension; Z87.891 Personal history of nicotine dependence; R73.9 Hyperglycemia, unspecified; Z68.35 Body mass index [BMI] 35.0-35.9, adult; Z79.899 Other long term (current) drug therapy; Z66 Do not resuscitate
CPT/HCPCS: 36415; 71045; 80048; 80053; 80061; 83036; 83735; 84443; 84484; 85025; 85027; 85610; 85730; 92928; 93005; 93306; 93308; 93454; 99152; 99153; 99285; 99406; C1757; C1874; J7030; Q9957; A4216; C1725; C1769; C1887; C1894; C8924; C8929; C9600; J1327; Q9967

== ENCOUNTER 2021-11-18 10:38 | Observation (INO) | payer OTHER, SELFPAY ==
[2021-11-16 08:52] VITALS: BMI 35.1
[2021-11-18] VITALS (14 sets, daily range): BP systolic 88–115; BP diastolic 55–73; PULSE 65–87; RESP 14–17; TEMP 36.6–36.8; O2SAT 95–100; BMI 34.7
--- NOTE | 2021-11-18 10:45 | EKG12_ITS ---
Test Reason : PCI Blood Pressure : / mmHG Vent. Rate : 073 BPM Atrial Rate : 073 BPM P-R Int : 128 ms QRS Dur : 092 ms QT Int : 370 ms P-R-T Axes : 049 049 -40 degrees QTc Int : 407 ms Normal sinus rhythm Cannot rule out Inferior infarct , age undetermined Abnormal ECG When compared with ECG of 09-NOV-2021 05:32, T wave inversion more evident in Inferior leads Confirmed by KAMALA RAMOS, AIDE ([id number]), photograph editor [employer]S ([id number]) on 11/18/2021 2:24:58 PM Referred By: Jessica Mills Confirmed By:AIDE WRAY MD
--- NOTE | 2021-11-18 10:55 | CL.I_ITS ---
Patient Name: ALLEY GUPTA Study Date: 11/18/2021 Performing: Patricio Mills MD Ht: 75 inches 190.5 cm : 1970 Wt: 281.4 lbs 127.46 kg Age: 51 Gender: male BSA: 2.54 PROCEDURE(S) PERFORMED IC12-(45670/C9600)RENA W/WO PTCA, SINGLE CORONARY ARTERY CLINICAL PROFILE AND CO-MORBIDITIES Indications: Staged PCI of LAD Heart Failure: None CONCLUSIONS Successful RENA to mLAD RECOMMENDATIONS DESCRIPTION OF PROCEDURE The patient arrived to the procedure lab. The risks and benefits of the procedure as well as a full description of our services here and current unavailability of surgical backup were fully explained to the patient and/or their significant other prior to the catheterization. The Timeout was completed, verifying the correct patient and procedure. The patient's procedural site was prepped and draped in the usual fashion. Local anesthetic was given subcutaneously to right radial region with Lidocaine 2%. Local anesthetic was given subcutaneously to right groin region with Lidocaine 2%. Using a modified Seldinger technique, and ultrasound guidance,arterial access was obtained via the right femoral artery, a 6Fr sheath was inserted.. Right Coronary Artery selective angiography was then performed in multiple views using a 5 Fr. JR 4 catheter XB 3.0 Guide catheter was inserted and engaged into the LCA. BMW Guide wire was advanced to the 2nd Diagonal. Whisper Guide wire was advanced to the LAD. Emerge 2.50x8 Balloon catheter was inserted. PTCA balloon inflated at 8 atms for 36 secs. PTCA balloon inflated at 8 atms for 12 secs. PTCA balloon inflated at 6 atms for 7 secs. Angiogram performed post balloon dilatation. NC Emerge 2.50x12 Balloon catheter was inserted. PTCA balloon inflated at 12 atms for 16 secs. Angiogram performed post balloon dilatation. Orsiro 2.50x13 Drug Eluting stent was inserted. Angiogram performed post stent deployment. NC Emerge 2.50x8 Balloon catheter was inserted. Angiogram performed post balloon dilatation. Contrast was injected through the sheath and the Right Iliac and Femoral artery were assessed for possible closure device. The arterial sheath was pulled and a Starclose closure device was deployed for hemostasis INTERVENTION INFORMATION LESION SITE: LAD (Mid) Lesion Complexity: High/C, chronic total occlusion: No, lesion at bifurcation: Yes, thrombus present: No, lesion length: 12 mm, culprit lesion: Yes, Previously treated lesion: No Pre Stenosis: 80 % Pre intervention SUZANNA flow: 3 PROCEDURE: Drug Eluting Stent with pre and post dilatation Post Stenosis: 0 % Post intervention SUZANNA flow: 3 Lesion Devices: Cardinal 6 Fr XB3.0 100cm Guide Catheter Benitez .014 HT Whisper MS Straight 190cm Yoan Sci EMERGE MR 2.50x08 BALLOON Yoan Sci NC EMERGE MR 2.50x12 BALLOON Biotronik [facility] [place] MR RENA 2.5x13 Yoan Sci NC EMERGE MR 2.50x08 BALLOON COMPLICATIONS No Complications PROCEDURE MEDICATIONS Versed 1 mg IV Fentanyl 50 mcg IV Versed 1 mg IV Fentanyl 25 mcg IV Oxygen: 2 L/min via nasal cannula Heparin 41954 unit(s) IV 11/18/2021 09:43:44 Nitro 100 mcg IC 11/18/2021 10:06:48 SUMMARY OF HEMODYNAMIC DATA Time AIR REST ECG 08:32:13 AO 115/53 (75) SA 09:42:56 Signed By Patricio Mills MD On 11/18/2021 10:54:25 Patricio Mills MD
--- NOTE | 2021-11-18 13:53 | CRPHASE1 ---
Patient Communication PHII Cardiac Rehab Discussed with Patient:: Yes Guide to Cardiac Rehab Given to Patient:: Yes Cardiac Rehab Facility Choice List Given to Patient:: Yes Choice Program [facility] CR PHII:: Communication Given to CR Choice Program Other:: Communication Given to CR Senior Manufacturing Supervisor:: Jessica Mills Refer Phase II Cardiac Rehab:: Yes Sessions:: 36 sessions - 3 days/wk, 12 weeks Cardiac Rehabilitation Info Cardiac Rehabilitation Program Information: Cardiac Rehabilitation is important for patients like you who are recovering from a heart problem. Cardiac rehabilitation programs are recognized as integral to the continued care of the patient with coronary heart disease. The cardiac rehabilitation program is designed to optimize a patient's physical, psychological, and social functioning. Health critical care nurse specialist work in cardiac rehabilitation programs and assist you with getting the treatments you need to get stronger and healthier - like exercise, healthy eating habits, and medications. Cardiac rehabilitation has been show to help people with heart problems live longer and have better life enjoyment than people who do not go to cardiac rehabilitation. Please contact the Cardiac Rehabilitation Program at [facility] at in two weeks if you have not heard from them.
--- NOTE | 2021-11-18 13:53 | CRPH1.INSTRU ---
General Education CAD and cardiac anatomy and function:: Patient communicates acknowledgment Explanation of diagnoses and procedures:: Patient communicates acknowledgment Sign/Symptoms of SD:: Patient communicates acknowledgment Antiplatelet therapy: Patient communicates acknowledgment Smoking Patient Nicotine/Smoking Risk Factors Are:: Non-smoker Recommendations Include:: Previous smoker; encourage continued cessation Nicotine/Smoking Response Code:: Patient communicates acknowledgment Dyslipidemia Patient Dyslipidemia Risk Factors Are:: Total Cholesterol, Triglycerides, HDL, LDL Recommendations Include:: Lipid profile provided, Reviewed NCEP/ATP guidelines, Therapeutic Lifestyle Change dietary guidelines Dyslipidemia Response Code:: Patient communicates acknowledgment Overweight/Obesity Patient Overweight/Obesity Risk Factors Are:: Obesity - > or = 30 Recommendations Include:: Weight loss of 5-10%, Reduced calorie diet, Exercise 5-7 times/week Overweight/Obesity:: Patient communicates acknowledgment Hypertension Recommendations Include:: Maintain BP <130/85, DASH dietary guidelines, Decrease/maintain normal body weight, Moderation of ETOH Hypertension:: Patient communicates acknowledgment Diabetes Patient Diabetes Risk Factors Are:: No documented hx of diabetes Metabolic Syndrome Patient Metabolic Syndrome Risk Factors Are [3 of 5]:: Fasting blood sugar > 100 mg/dL, Waist circumference > 35 [female] or 40 [male], High triglyceride >150, Hypertension, Low HDL <40 [male] or < 50 [female] Recommendations Include:: Reinforce compliance to risk factor modifications, Encouraged follow-up with Primary Care Physician Metabolic Syndrome Response Code:: Patient communicates acknowledgment Sedentary Patient Sedentary Risk Factors Are:: Lack of regular exercise Recommendations Include:: Aerobic exercise 5-7 times/week for 20-30 minutes continuously, Benefits of regular exercise, Discussed home walking program, Monitored Outpatient Cardiac Rehab Sedentary Response Code:: Patient communicates acknowledgment Stress Patient Stress Risk Factors Are:: Patient denies stress as a risk factor
[2021-11-18] MEDS: Lisinopril 5 MG Tablet PO (20:40)
[2021-11-18] MEDS: APIXABAN 5 MG TABLET PO (20:40)
[2021-11-18] MEDS: Metoprolol Tartrate 25 MG Tablet PO (20:40)
[2021-11-18] MEDS: TICAGRELOR 90 MG TABLET PO (20:40)
[2021-11-18] MEDS: Atorvastatin Calcium 80 MG Tablet PO (20:40)
[2021-11-19] VITALS (9 sets, daily range): BP systolic 102–120; BP diastolic 56–64; PULSE 65–83; RESP 14–16; TEMP 36.4–36.6; O2SAT 98–100
[2021-11-19 06:39] LABS: Hematocrit 42.1 % (40-54); Hemoglobin 14.1 g/dL (13.0-16.5); Mean Corp Hgb Conc 33.5 g/dL (32-36); Mean Corpuscular Hgb 30.7 pg (27.0-32.0); Mean Corpuscular Volume 91.7 fL (80-94); Mean Platelet Vol. 8.9 fl (6.2-12.0); Platelet Count 243 K/mm3 (150-450); RBC Distribution Width CV 12.7 % (11.6-14.6); RBC Distribution Width SD 42.5 fl (35.1-43.9); Red Blood Count 4.59 M/mm3 (4.6-6.2)
[2021-11-19 07:23] LABS: AST(SGOT) 11 U/L (15-37); Alanine Aminotransfer ALT/SGPT 30 U/L (16-61); Albumin, Serum 3.3 g/dL (3.2-5.0); Alkaline Phosphatase 87 U/L (45-117); Anion Gap 6 (5-15); BUN 16 mg/dL (7-18); Calcium,Total 8.7 mg/dL (8.5-10.1); Chloride 105 mmol/L (98-107); EST Glomerular Filtration Rate 108 mL/min (>60); Est Glom Filt Rate - Afr Amer 130 mL/min (>60); Estimated Creatinine Clearance 127.63 ml/min; Globulin 3.4 g/dL (2.2-4.2); Glucose 122 mg/dL (74-106); Potassium 3.6 mmol/L (3.5-5.1); Protein, Total 6.7 g/dL (6.4-8.2); Sodium Level 137 mmol/L (136-145)
[2021-11-19] MEDS: TICAGRELOR 90 MG TABLET PO (09:18)
[2021-11-19] MEDS: Metoprolol Tartrate 25 MG Tablet PO (09:18)
[2021-11-19] MEDS: Aspirin E.C. 81 MG Tablet PO (09:18)
[2021-11-19] MEDS: APIXABAN 5 MG TABLET PO (09:18)
[2021-11-19] MEDS: Lisinopril 5 MG Tablet PO (09:19)
--- NOTE | 2021-11-19 10:00 | EKG12_ITS ---
Test Reason : NSTEMI Blood Pressure : / mmHG Vent. Rate : 068 BPM Atrial Rate : 068 BPM P-R Int : 136 ms QRS Dur : 096 ms QT Int : 388 ms P-R-T Axes : 048 050 -33 degrees QTc Int : 412 ms Sinus rhythm with Premature atrial complexes with Aberrant conduction Cannot rule out Inferior infarct (cited on or before 18-NOV-2021) Abnormal ECG When compared with ECG of 18-NOV-2021 11:07, Aberrant conduction is now Present Confirmed by KAMALA RAMOS, AIDE ([id number]), videotape editor [employer]S ([id number]) on 11/22/2021 9:18:24 AM Referred By: Jessica Mills Confirmed By:AIDE WRAY MD
--- NOTE | 2021-11-19 11:04 | PCM.PN.CARD ---
Subjective Subjective Patient seen and evaluated. Appears to be doing quite well at this time. Objective Data Vital Signs: Vital Signs Temp Pulse Resp BP Pulse Ox O2 Del Method 97.6 F L 81 16 120/61 98 Room Air 11/19/21 09:20 11/19/21 09:43 11/19/21 09:20 11/19/21 09:20 11/19/21 09:20 11/19/21 09:20 Oxygen Delivery Method Room Air Weight: 278 lb 3.574 oz Body Mass Index (BMI) 34.7 Intake & Output: Intake and Output for Last 24 Hours 11/17/21 11/18/21 11/19/21 23:59 23:59 23:59 Intake Total 2500 / 2500 1500 / 1500 Balance 2500 / 2500 1500 / 1500 Lab / Micro Data Result Diagrams: 11/19/21 05:58 11/19/21 05:58 Labs: Laboratory Results - last 24 hr 11/19/21 05:58: WBC 8.0, RBC 4.59 L, Hgb 14.1, Hct 42.1, MCV 91.7, MCH 30.7, MCHC 33.5, RDW Std Deviation 42.5, RDW Coeff of Yeny 12.7, Plt Count 243, MPV 8.9 11/19/21 05:58: Sodium 137, Potassium 3.6, Chloride 105, Carbon Dioxide 26.0, Anion Gap 6, BUN 16, Creatinine 0.80, Estim Creat Clear Calc 127.63, Est GFR (MDRD) Af Amer 130, Est GFR (MDRD) Non-Af 108, BUN/Creatinine Ratio 20.0, Glucose 122 H, Calcium 8.7, Total Bilirubin 0.30, AST 11 L, ALT 30, Alkaline Phosphatase 87, Total Protein 6.7, Albumin 3.3, Globulin 3.4, Albumin/Globulin Ratio 1.0 Cardiology Labs/Tests 11/19/21 05:58: WBC 8.0, RBC 4.59 L, Hgb 14.1, Hct 42.1, MCV 91.7, MCH 30.7, MCHC 33.5, Plt Count 243, MPV 8.9 11/19/21 05:58: Sodium 137, Potassium 3.6, Chloride 105, Carbon Dioxide 26.0, Anion Gap 6, BUN 16, Creatinine 0.80, Est GFR (MDRD) Af Amer 130, Est GFR (MDRD) Non-Af 108, BUN/Creatinine Ratio 20.0, Glucose 122 H, Calcium 8.7, Total Bilirubin 0.30 Rhythm: EKG: ECHO: Stress Test: Cardiac Cath: PCI: CT Surgery: Holter monitor: EPS: PPM: CXR: Chest CT Scan: Physical Exam Const alert, oriented x3 and no apparent distress General Appearance: cooperative HEENT hearing grossly normal bilaterally Head and Scalp: atraumatic Eyes EOMs intact bilaterally Neck General: normal visual inspection Chest inspection of chest normal and palpation of chest normal Resp normal respiratory effort Auscultation: clear to auscultation bilaterally Cardio regular rate, regular rhythm, S1 normal heart sound and S2 normal heart sound Jugular Venous Distention: JVD GI normal to inspection, nondistended, normoactive bowel sounds Extremity normal capillary refill and no pedal edema Peripheral Pulses: Yes pulses 2+ throughout and femoral pulses present Skin no rashes or lesions noted Neuro oriented x3 and CN's II-XII intact bilaterally Psych Appearance: grossly normal and appropriate Assessment & Plan Assessment/Plan (1) History of coronary artery stent placement: PLAN: He is status post angioplasty and stenting of the right coronary artery and the left anterior descending artery. Patient appears to be doing well. He will be discharged for outpatient follow-up with Dr. Singleton. (2) Essential hypertension: PLAN: His blood pressure is under good control at this time I would not recommend we make any changes. (3) Atrial fibrillation: PLAN: He is on anticoagulation for his atrial fibrillation. This will be continued with no changes.
--- NOTE | 2021-11-19 11:12 | DCINST_ITS ---
Discharge Instructions Diet Discharge Diet: No restrictions Activity Discharge Activity: Return to Normal Activity Additional Activity Instructions:: You must have someone drive you home. Do not drive until instructed by your doctor. You must have someone stay with you all night after your test. Rest in bed or on the couch until the next morning. Limit the number of times you go up and down stairs the day of your test. Apply pressure to the puncture site if you sneeze or cough. Dressing / Incision Call your doctor if your incision/area has: Increased Pain/ Swelling, Increased Redness, Foul Smelling Discharge and Swelling at the incision site Call your doctor if you observe: Fever of 101 or Higher Additional Dressing/Incision Instructions:: Keep the dressing (bandage) on until the next morning. You may then shower, but do not take a tub bath for 5 days after your test. It is normal to have some tenderness and discomfort at the puncture site. Sometimes bruising also occurs. However, if pain, numbness, or coldness occurs below the puncture site (in your leg, toes, arms or fingers) call your doctor at once. You may have a small, marble sized knot at the puncture site. This is normal. Do not rub it. It will go away in 4-6 weeks. Bleeding can occur from the area where the puncture was done. Blood may spurt or drip from the site. If blood spurts, apply pressure right away to stop bleeding and call 911. Although rare, bleeding into the tissue (hematoma) can also occur. If this happens, a large, firm area goose egg under the skin will appear. If any of these occur, lie down as flat as you can and have someone apply firm pressure to the cath site with a gauze pad or a clean washcloth for 10-15 minutes. Call 911 or go to the Emergency Department. Follow Up Care Please Follow Up With: Wayne Singleton MD Test Results: Test results from this visit will be discussed in further detail at your follow- up appointment, if applicable. Discharge Plan Admission Admit Date/Time: 11/18/21 10:38 Attending Provider: Jessica Mills Primary Care Provider: Care PhysicianMalu Primary Discharge Orders/Prescriptions Prescriptions: No Action aspirin 81 mg Tablet,Delayed Release (Dr/Ec) 81 mg PO BREAKFAST 30 Days Qty: 30 0RF atorvastatin 80 mg Tablet 80 mg PO QHS 30 Days Qty: 30 0RF lisinopril 5 mg Tablet 5 mg PO BID 30 Days Qty: 60 0RF metoprolol tartrate 25 mg Tablet 25 mg PO BID 30 Days Qty: 60 0RF Brilinta 90 mg Tablet 90 mg PO BID 30 Days Qty: 60 0RF Eliquis 5 mg tablet 5 mg PO BID Qty: 60 0RF Referrals / Follow Up: Wayne Singleton MD [Med Staff - Active Staff] - Care Physician,No Primary [Primary Care Provider] - Disposition Disposition (needs filled in before D/C Order can be placed): Home, Self Care
== END 2021-11-19 11:10 | disposition home or self-care (01) ==
LOC: CLSP 10:45 → PCU 13:02
PROVIDERS: Admitting Provider Specialist; Referring Provider Specialist; Visit Provider Specialist
DX: I21.4 Non-ST elevation (NSTEMI) myocardial infarction (principal); I48.91 Unspecified atrial fibrillation; I10 Essential (primary) hypertension; R07.89 Other chest pain; R06.00 Dyspnea, unspecified; Z87.891 Personal history of nicotine dependence
CPT/HCPCS: 36415; 80053; 85027; 92928; 93005; 99152; 99153; 99218; 99406; C1874; J7040; Q9967; C1725; C1760; C1769; C1887; C1894; C9600; G0378

== ENCOUNTER → 2021-11-25 | Outpatient (CLI) | payer OTHER, SELFPAY ==
--- NOTE | 2021-11-25 13:44 | PCM.CR.HP2 ---
CR - History & Physical - General Arrival date:: 11/25/21 Arrival time:: 13:44 Date of Referral:: 11/09/21 Date of CR Evaluation:: 11/25/21 Referring Physician: Dr. Wayne Singleton Primary Diagnosis: PCI with coronary stent - History of Present Cardiac Event Onset Date: Enter Onset Date of cardiac illnesses in Comment field below PTCA or coronary stenting:: Yes - 11/08/21 Vessel: RCA, LAD - Sleep Disorder Evaluation Hx of Sleep Apnea: No Do you snore loudly (louder than talking or can be heard through closed doors)?: No Do you often feel tired/ fatigued/ sleepy during daytime?: No Has anyone observed you stop breathing during sleep?: No History of Hypertension (for STOP score): Yes STOP Results: Negative - Medications Home Medications: Ambulatory Orders Medication Instructions Recorded apixaban 5 mg tablet (Eliquis) 5 mg PO BID #60 tabs 11/09/21 aspirin 81 mg tablet,delayed 81 mg PO BREAKFAST 30 days #30 tabs 11/09/21 release atorvastatin 80 mg tablet 80 mg PO QHS 30 days #30 tabs 11/09/21 lisinopril 5 mg tablet 5 mg PO BID 30 days #60 tabs 11/09/21 metoprolol tartrate 25 mg tablet 25 mg PO BID 30 days #60 tabs 11/09/21 ticagrelor 90 mg tablet (Brilinta) 90 mg PO BID 30 days #60 tabs 11/09/21 - Allergies Allergies/Adverse Reactions: Allergies No Known Allergies Allergy (Verified 11/07/21 12:28) Advanced Directives - Advanced Directives Power of Critical Care Transport Nurse: No Living Will: No Advance Directives Information Provided: No Advance Directives on File: No DNR Order?:: No Past Medical History - Covid-19 Screening Fever: No Unexplained muscle aches: No Current respiratory symptoms: No Upper respiratory infections symptoms: No Gastro-intestinal symptoms: No Uqm-[id number] symptoms: No Has tested positive for COVID-19 in last 30 days: No Had contact w/person w/symptoms or Covid-19 (+) last 14 days: No Has High Risk Exposures ID'd by Health dept/Inf Control team: No 65 years or older:: No Lives in Assisted Living facility:: No Has a chronic lung disease or moderate to severe asthma:: No Has a serious heart condition:: Yes Immunocompromised:: No Severely obese (Body Mass Index of 40 or higher):: No Diabetic:: No Has chronic kidney disease undergoing dialysis:: No Has liver disease:: No - Past Medical Illness Medical History: Past Medical History (Last Updated 11/18/21 @ 14:28 by Gilma Lima) Atherosclerosis of coronary artery of [place] heart without angina pectoris I25.10 Atrial fibrillation I48.91 Essential hypertension I10 History of coronary artery stent placement Onset Date: 11/18/21 Z95.5 Successful RENA to mLAD per cardiac cath Dr. Mills 11/18/21; Successful RENA to proximal and mid RCA per cardiac cath Dr. Mills 11/08/21 History of non-ST elevation myocardial infarction (NSTEMI) I25.2 HTN (hypertension) I10 - Past Surgical History Surgical History: Past Surgical History (Last Updated 11/18/21 @ 14:28 by Gilma Lima) History of tonsillectomy Z90.89 Presence of coronary angioplasty implant and graft Onset Date: ~11/18/21 Z95.5 Successful RENA to mLAD per cardiac cath Dr. Mills 11/18/21; Successful RENA to proximal and mid RCA per cardiac cath Dr. Mills 11/08/21 - Family History Summary Family History: Family History (Last Reviewed 11/16/21 @ 08:56 by Diane Green) Father No cardiac disease Mother Multiple sclerosis Social History - Smoking History Smoking Status: Former smoker Years Smokin Packs Smoked per Day: 1 Hx Smoking Cessation Date: 11/10/21 - Alcohol Use Alcohol Usage: No - Substance Abuse Hx Substance Use: No - Occupation Occupation (List type of work in comments):: Employed Hours worked per day:: 10 Returned to work on:: 11/21/21 - Hobbies, Recreation, Social Activities Hobbies: Other - golf Recreational Activities: I am able to engage in all my recreational activities Social Environment - Status Marital Status: - Current Living Arrangements Living Environment:: Spouse - Children How many children do you have?: 2 Do any of your children live nearby?: No - Safety Do you feel safe in your surroundings?: Yes - Assistance Do you need any assistance at home?: no Review of Systems - Review of Systems Hints: Right click = Denies ([place]ash). Left click = Reports ([place]) Review of Present Symptoms: Reports: Dizziness/Lightheadedness, Heart Arrhythmia/Irregularities - pt was in afib. back to NSR, Appetite - Normal, Appetite - Special Diet, Sleep - Normal. Denies: Shortness of Breath at Rest, Shortness of Breath with Exertion, PVD, Operative Discomfort, Angina, Wound Healing, Fatigue, Sexual Changes - Pain Is Patient Pain Free?: Yes Risk Factor Assessment - Vital Signs Pulse Ox: 97 Blood Pressure: 110/60 - Pulse Pulse Rate: 66 Pulse Rhythm: Regular - Diabetes Nutrition Referral for Diabetes: No - Obesity Height: 6 ft 3 in Weight:: 127.459 kg Weight in Pounds: 281.0 lbs Body Mass Index (BMI): 35.1 Nutritional Referral for Obesity: Yes - Physical Inactivity Physical Inactivity: None - Risk Stratification Risk Guidelines: Moderate Risk: Risk Factor for Sedentary Lifestyle, Risk Factor for Depression, Highest Risk: Risk Factor for Smoking, Risk Factor for Dyslipidemia, Risk Factor for Diabetes, Risk Factor for Obesity, Risk Factor for Hypertension - Family History Family History: Family History (Last Reviewed 11/16/21 @ 08:56 by Diane Green) Father No cardiac disease Mother Multiple sclerosis Motivation - Motivation to Participate On a scale of 1 to 10, how prepared are you to commit to attending program?: 10 What do you see as barriers to successfully being able to complete the program?: none What do you see as the benefits of succesfully completing the program? In other words, what do you hope to get out of participating in the program?: improved health Are there issues you are dealing with that will interfere with completing the program?: no Do you have a spouse or signficant other, family or friends who will help support you to complete the program?: yes
[2021-11-25 14:05] VITALS: BP 110/60; PULSE 66; O2SAT 97; BMI 35.1
--- NOTE | 2021-11-25 14:28 | PCM.CR.ITP ---
Diagnosis - General Information Admitting Diagnosis: PCI with coronary stent Personal Learning Style:: Audio/Visual Barriers to Learning: No Barriers Stage of change r/t lifestyle modifications:: Contemplation Gave educational material for:: Treating Heart Disease, Emotions & Heart Disease, Stress Management & Relaxation, Sleep Disorders & Heart Disease, How The Heart Works, What it means to have Heart Disease, How Coronary Artery Disease is Diagnosed, Heart Procedures, What Heart Medications Do, Risk Factors & Modifications, Living an Active Life, Nutrition - Education/Goals Cardiac Rehabilitation Goals: 1. Maintain the individual as the primary focus of care. 2. To improve the patient's quality of life. 3. Identification of cardiac risk factors and provide cardiac risk factor management. 4. Enhance the psychosocial status of the patient. 5. Reconditioning enough to allow the patient to resume customary activities. 6. Control symptoms of cardiac disease Personal Goals: Initial Assessment: Improve management of stress and emotions, Improve energy level, Improve knowledge of cardiac disease, Improve muscle strength and endurance, Improve diet and eating habits (eat healthier), Control risk factors (learn risk factor modification) Scale for measuring improvement of personal goals: Enter appropriate number in Comments. 2 = Unchanged. 3 = Slightly Better. 4 = Moderate Improvement. 5 = Met my Goal - Diagnosis & Disease Process Outcomes/Goals: Pt IDs own risk factors & lifestyle modifications by Session 10, Verbalizes symptoms of angina & response by session 3., Pt independently manages, Other Additional Outcomes/Goals: Plan/Interventions: Assist Pt to ID & engage in lifestyle modification to reduce CVD risk, Instruct on individual risk factors, Review symptoms of angina & emergency actions, Review secondary diagnosis & identify educational needs., Other see comment 30 day Reassessments:: Not Met 30 day Reassessments:: Not Met 30 day Reassessments:: Not Met 30 day Reassessments:: Not Met Final Reassessments:: Not Met - Safety Referral to Physical Therapy: No Referral to [facility] Case Management: No Fall Risk Assessed:: Yes Assistive Devices:: None Exercise - Initial Assessment - Visit Date of Eval: 11/25/21 - initial eval Mets: Pre-: >3 METS for 30 minutes by discharge, >5 METS for 30 minutes by discharge, >7 METS for 30 minutes by discharge, Unable to meet goal due to: (see comment below) - Physician Prescribed Exercise Modalities: Treadmill, Rower, Airdyne, NuStep, SciFit, Lateral Neonatal Intensive Care Unit Nurse Frequency: 3x/week for 12 weeks [36 sessions] Intensity: 60-80% of age predicted maximum heart rate reserve Current METSs:: 3 Target Heart Rate:: 109-142 Resting Blood Pressure: 110/60 EKG Type: SR - Outcomes & Goals Goals:: Verbalizes understanding of THR, RPE & goal METS by session 6, Documents in home exercise log/reports 30 min aerobic 5 day/wk by DC, Demonstrates accurate pulse taking by DC, Other additional outcome/goals: see below - Intervention & Plan Exercise Program Goals: Instruct on personal THR & RPE, Instruct on MET level & personal MET goal, Show patient to take own pulse /validate performance until accurate, Instruct on home exercise, Other additional plan/int - Physical Activity Home Exercise Physical Activity - Home Exercise: Safe Exercise, Warm-up, Self-monitoring, Cool-Down, Home Exercise > 30 min Daily, Sitting Time <3 hours/daily - Outcomes & Goals Outcomes/Goals: Demonstrates correct Warm-up/exercise Cool-Down (S3) if = 2.5 METs, Verbalizes symptoms of exercise intolerance by Session 3 (S3), Demonstrate safe equipment use (S3) & follows exercise prescrition (6), Other: See below - Intervention & Plan Plan/Intervention: Instruct warm-up & cool-down if exercising at > 2 METs, Instruct on symptoms of exercise intolerance & actions to take, Instruct & monitor on saf, Assess intial functional capacity & safety risk, Other See below Nutrition - Initial Assessment - Visit Date of Assessment:: 11/25/21 - initial eval - Cholesterol/Lipids (Other Core Measures) Determine presence & major risk factors that modify LDL goal: Cigarette smoking, Hypertension or hypertensive medication, Low HDL cholesterol <40 mg/dL*, Family history of premature CHD in Male < 55 years: female <65 yearsFa, Age men > 45 years; women >/= 55 years Outcomes/Goals: Pt IDs own risk factors & lifestyle modifications by Session 10, Verbalizes symptoms of angina & response by session 3., Pt independently manages, Other Additional Outcomes/Goals: Intervention/Plan: Advocate for lipid panel cholesterol medication if applicable, Instruct on personal lipid levels & lipid goals/NCEP guidelines, Instruct on cholesterol, Other additional plan/int Referral to dietitian:: Yes - medical nutrition therapy - Diabetes (Other Core Measures) Diabetes Type: Not Applicable - Weight Mgt (Other Care) Height: 6 ft 3 in Weight:: 127.459 kg BMI: 35.1 Diagnosis Overweight/Obesity BMI> 30% ICD-10 E66: Yes Diagnosis High BMI/Morbid Obesity BMI> 35% ICD-10 Z68: Yes Outcomes/Goals: Pt sets, maintains & shows weight loss goal & trend during rehab, Other additional outcomes/goals Intervention/Plan: Instruct on ideal BMI & set weight loss goal w/patient, Assist pt to ID & incorporate diet changes for weight loss by S9, Refer to Structured Weight Loss program as appropriate, Encourage goal of using 250-300dcal per session for weight loss, Other additional plan/interventions - Healthy Eating Habits Will attend diet classes:: Yes Outcomes/Goals:: Consume diet rich in vegs,fruits,whole grain/high fiber,fish,lean meat, Limit sat/trans fats,cholesterol & added salts & sugars, Other additional outcome/goals: Intervention/Plan:: Assess current eating habits, Other Additional plan/interventions - Education Gave educational materials for:: Signs & symptoms of hypoglycemia, Signs & symptoms of hyperglycemia, Relate diabetes to coronary artery disease, Healthy eating Nutrition - 30-Day Assessment Nutrition - 60-Day Assessment Nutrition - 90-Day Assessment Nutrition - Final Assessment Core - Initial Assessment - Visit Date of Eval: 11/25/21 - initial eval - Medication Compliance Preventative Medication(s):: Aspirin, BHANU inhibitor, Ticagrelor/P2Y12 inhibitor, Statin/lipid, Beta shaji H/O mental health issues: depression, anxiety, or addiction?: No Doesn?t believe in the benefits of treatment?: No Believes medications are unnecessary or harmful?: No Has a concern about medication side effects?: No Expresses concern over the cost of medications?: No Outcomes/Goals: Verbalizes medications,desired effect & common side effects @ DC, Pt self-reports following medication regimen, Keeps card in wallet w/medications listed by DC, Other additional outcome/goals: Interventions/plans: Instruct on medication effects & side effects, Review medication list w/patient every two weeks, Instruct importance of taking meds as ordered & assist problem solving, Other additional - Tobacco Use Tobacco Use: Cigarettes How long ago did you quit using tobacco products?: Less than 6 months ago How many cigarettes do you smoke per day?: 20 - pt quit 11/10/21 Years Smokin Outcomes/Goals: Smoking cessation achieved or maintained by discharge, Identify aids/strategies for achieving smoking cessation by session 6, Other additional outcome/goals Interventions/plan: Instruct on effects of smoking & provide smoking cessation resource, Assist pt to set quit date & provide encouragement, Assist pt to develop strategies to achieve/maintain quit date, Assist pt w/nicotine replacement & medication for cessation success, Other additional plan/interventions - Hypertension Hypertension Diagnosis:: Hypertension ICD-10 I10 Resting Blood Pressure:: 110/60 [place] [employer] Hypertension Guidelines: [place] [employer] Hypertension Guidelines. Normal BP Less than 120/80. Elevated BP 120/80. Hypertension Stage 1: BP 130-139/80-89. Hypertesnion Stage 2: BP 140 or higher/90 or higher. Hypertension Crisis: BP higher than 180/120 Outcomes/Goals: Able to verbalize/achieve optimal blood pressure <130/80, Incorporates diet changes & exercise for blood pressure control by DC, Other additional outcomes/goals Interventions/plan: Instruct on optimal blood pressure, hypertension & medications, Instruct on effects of sodium, alcohol, stress, exercise &hypertension, Other additional plan/interventions - Tobacco Cessation Referral Smoking Cessation Referral:: No Individual Education/Counseling:: No Education Schedule Given:: Yes Core - 30-Day Assessment Core - 60-Day Assessment Core - 90 Day Assessment Core - Final Assessment Psychosocial - Initial Assess - VIsit Date of Eval: 11/25/21 - initial eval History of previous Mental disease:: No Psychosocial - 30-Day Assess Psychosocial - 60-Day Assess Psychosocial - 90-Day Assess Psychosocial - Final Assessmen Patient Health Questionnaire Initial Assessment 1. Little interest or pleasure in doing things: Not at all 2. Feeling down, depressed, or hopeless: Not at all 3. Trouble falling or staying asleep, or sleeping too much: Not at all 4. Feeling tired or having little energy: Not at all 5. Poor appetite or overeating: Not at all 6. Feeling bad about yourself -- or that you are a failure or have let yourself or your family down: Not at all 7. Trouble concentrating on things, such as reading the newspaper or watching television: Not at all 8. Moving or speaking so slowly that other people could have noticed. Or the opposite - being so fidgety or restless that you have been moving around a lot more than usual: Not at all 9. Thoughts that you would be better off , or of hurting yourself in some way: Not at all How difficult have these problems made it for you to do your work, take care of things at home, or get along with other people?: Not difficult at all Total Score: 0 NURYS-Q SV Test - Statements CAD is a disease of the arteries in the heart: False Examples of risk factors for heart disease: True Angina is chest pain or discomfort: I Don't Know The benefits of resistance training include: I Don't Know Eating more meat and dairy products: False Anti-platelet medications such as aspirin are important: I Don't Know The only effective way to manage stress: I Don't Know An exercise warm-up slowly increases heart rate: I Don't Know Prepared, processed foods usually have high sodium: True Depression is common after a heart attack: I Don't Know The statin medications lower cholesterol: I Don't Know To control blood pressure, lower the amount of sodium: True If someone gets chest discomfort during walking: False Transfats are partially hydrogenated vegetable oils: True Sleep apnea that is not treated increases the risk: I Don't Know To control cholesterol, one should become a vegetarian: I Don't Know Someone knows if he/she is exercising at the right level: I Don't Know Diabetes cannot be prevented with exercise & health eating: I Don't Know Stress is a large risk for heart attack: True A diet that can help lower blood pressure is rich in: True - Total Score Total Correct Responses: 9 Self-Efficacy Initial Assessment We would like to know how confident you are in doing certain activities. Please select your confidence level for:: Select your confidence level for the following using the scale 1-10 where 1 is not at all confident and 10 is totally confident. Your score is the average of all 6 responses. Fatigue: How confident are you that you can keep the fatigue caused by your disease from interfering with the things you want to do? Select Number: 2 Physical Discomfort or Pain: How confident are you that you can keep the physical discomfort or pain of your disease from interfering with the things you want to do? Select Number: 2 Emotional Distress: How confident are you that you can keep the emotional distress caused by your disease from interfering with the things you want to do? Select Number: 9 Other Symptoms or Health Problems: How confident are you that you can keep other symptoms or health problems from interfering with the things you want to do? Select Number: 6 Different Tasks and Activities: How confident are you that you can do the different tasks and activities needed to manage your health condition so as to reduce your need to see a doctor? Select Number: 4 Medication: How confident are you that you can do things other than just taking medication to reduce how much your illness affects your everyday life? Select Number: 6 Total Score:: 4 Nutrition Survey - Nutrition Survey Initial Have you lost >10 lbs over the past 2 months without trying?: No Are you following a special diet at home for diabetes, low fat, or low salt?: No Are you interested in meeting with a dietitian for help understanding your diet?: Yes Do you eat less than 3 meals a day?: No Do you eat fatty meats (molina, sausage, ribs, etc), fried foods, desserts, large amounts of salad dressings, margarine, butter, or cheese most days?: No Do you have food allergies? [Enter types in comment field]: No Do you eat in restaurants more than 3 times a week?: No Do you season food with salt, seasoning salt, or garlic salt?: No Do you used canned, boxed, frozen meals, or soups, seasoning packets?: No Total Score:: 1
[2021-11-25 14:41] VITALS: BP 110/60; BMI 35.1
== END | disposition home or self-care (01) ==
LOC: CR 13:01
PROVIDERS: Referring Provider Internal Medicine Cardiovascular Disease; Visit Provider Internal Medicine Cardiovascular Disease
DX: Z95.5 Presence of coronary angioplasty implant and graft (principal)

== ENCOUNTER 2021-12-09 13:00 | Outpatient (RCR) | payer OTHER, SELFPAY ==
[2021-11-25 14:41] VITALS: BMI 35.1
== END 2021-12-09 23:59 ==
LOC: CR 13:00
PROVIDERS: Referring Provider Internal Medicine Cardiovascular Disease; Visit Provider Internal Medicine Cardiovascular Disease
DX: I25.10 Atherosclerotic heart disease of native coronary artery without angina pectoris (principal); I25.2 Old myocardial infarction; Z95.5 Presence of coronary angioplasty implant and graft; Z98.61 Coronary angioplasty status
CPT/HCPCS: 93798

== ENCOUNTER 2022-01-09 13:00 | Outpatient (RCR) | payer OTHER, SELFPAY ==
[2021-11-25 14:41] VITALS: BMI 35.1
--- NOTE | 2021-12-30 09:25 | PCM.CR.ITP ---
Diagnosis Exercise - 30-day Assessment - Visit Date of Eval: 12/30/21 Session #:: 13 - Physician Prescribed Exercise Modalities: Treadmill, Airdyne, NuStep Frequency: 3x/week for 12 weeks [36 sessions] Intensity: 60-80% of age predicted maximum heart rate reserve Duration: 30 - 45 minutes Current METSs:: 6.5 Target Heart Rate:: 109-142 Current RPE:: 13-14 Maximum Excercise HR:: 133 Resting Blood Pressure: 122/50 Maximum Exercise Blood Pressure: 184/82 EKG Type: NSR to sinus tach with rare PACs - Outcomes & Goals Goals:: Verbalizes understanding of THR, RPE & goal METS by session 6, Documents in home exercise log/reports 30 min aerobic 5 day/wk by DC, Demonstrates accurate pulse taking by DC - Intervention & Plan Exercise Program Goals: Instruct on personal THR & RPE, Instruct on MET level & personal MET goal, Show patient to take own pulse /validate performance until accurate, Instruct on home exercise - 30-day Reassessments 30 day Reassessments:: Met - Physical Activity Home Exercise Physical Activity - Home Exercise: Safe Exercise, Warm-up, Self-monitoring, Cool-Down, Home Exercise > 30 min Daily, Sitting Time <3 hours/daily - Outcomes & Goals Outcomes/Goals: Demonstrates correct Warm-up/exercise Cool-Down (S3) if = 2.5 METs, Verbalizes symptoms of exercise intolerance by Session 3 (S3) - Intervention & Plan Plan/Intervention: Instruct warm-up & cool-down if exercising at > 2 METs, Instruct & monitor on saf, Assess intial functional capacity & safety risk - 30-day Reassessments 30 day Reassessments:: Met Nutrition - Initial Assessment Nutrition - 30-Day Assessment - Program Goals Nutrition Program Goals: LDL <100 optimal. 100 - 129 Near optimal. 130 - 159 Borderline High. 160 - 189 High. Total Cholesterol <200 desirable. 200 - 239 Borderline High. >/= 240 High. HDL < 40 Low >/=60 High. Triglycerides <150 desirable. <199 optimal. VlDL 5 - 40. HgbA1C <7%. BMI <25 Patient has diagnosis of Hyperlipidemia (ICD E78)?: Yes - Visit Date of Assessment:: 12/30/21 Session #:: 12 - Cholesterol/Lipids (Other Core Measures) Triglycerides (mg/dL): 234 Total Cholesterol (mg/dL): 154 LDL Cholesterol (mg/dL): 77 HDL Cholesterol (mg/dL): 30 Determine presence & major risk factors that modify LDL goal: Hypertension or hypertensive medication, Low HDL cholesterol <40 mg/dL*, Family history of premature CHD in Male < 55 years: female <65 yearsFa Outcomes/Goals: Pt IDs own risk factors & lifestyle modifications by Session 10, Verbalizes symptoms of angina & response by session 3., Pt independently manages Intervention/Plan: Instruct on personal lipid levels & lipid goals/NCEP guidelines, Instruct on cholesterol Referral to dietitian:: Yes - Medical Nutrition Therapy 30-day Reassessments:: Progressing - Diabetes (Other Core Measures) Diabetes Type: Not Applicable - Weight Mgt (Other Care) Height: 6 ft 3 in Weight:: 280 lb BMI: 34.9 Diagnosis Overweight/Obesity BMI> 30% ICD-10 E66: Yes Diagnosis High BMI/Morbid Obesity BMI> 35% ICD-10 Z68: Yes Outcomes/Goals: Pt sets, maintains & shows weight loss goal & trend during rehab Intervention/Plan: Instruct on ideal BMI & set weight loss goal w/patient, Assist pt to ID & incorporate diet changes for weight loss by S9, Refer to Structured Weight Loss program as appropriate 30 day Reassessments:: Progressing - Healthy Eating Habits Will attend diet classes:: Yes Outcomes/Goals:: Consume diet rich in vegs,fruits,whole grain/high fiber,fish,lean meat, Limit sat/trans fats,cholesterol & added salts & sugars Intervention/Plan:: Assess current eating habits 30-day Reassessments:: Progressing - Education Gave educational materials for:: Healthy eating Nutrition - 60-Day Assessment Nutrition - 90-Day Assessment Nutrition - Final Assessment Core - Initial Assessment Core - 30-Day Assessment - Visit Date of Eval: 12/30/21 Session #:: 12 - Medication Compliance Preventative Medication(s):: Aspirin, Ticagrelor/P2Y12 inhibitor, Statin/lipid, Beta shaji, Eliquis H/O mental health issues: depression, anxiety, or addiction?: No Doesn?t believe in the benefits of treatment?: No Believes medications are unnecessary or harmful?: No Has a concern about medication side effects?: No Expresses concern over the cost of medications?: No Outcomes/Goals: Verbalizes medications,desired effect & common side effects @ DC, Pt self-reports following medication regimen, Keeps card in wallet w/medications listed by DC Interventions/plans: Instruct on medication effects & side effects, Review medication list w/patient every two weeks, Instruct importance of taking meds as ordered & assist problem solving 30-day Reassessments:: Met - Tobacco Use Tobacco Use: Non-smoker - Hypertension Hypertension Diagnosis:: Hypertension ICD-10 I10 Resting Blood Pressure:: 122/50 [place] [employer] Hypertension Guidelines: [place] [employer] Hypertension Guidelines. Normal BP Less than 120/80. Elevated BP 120/80. Hypertension Stage 1: BP 130-139/80-89. Hypertesnion Stage 2: BP 140 or higher/90 or higher. Hypertension Crisis: BP higher than 180/120 Peak Exercise Blood Pressure:: 184/82 Outcomes/Goals: Able to verbalize/achieve optimal blood pressure <130/80, Incorporates diet changes & exercise for blood pressure control by DC Interventions/plan: Instruct on optimal blood pressure, hypertension & medications, Instruct on effects of sodium, alcohol, stress, exercise &hypertension 30 day Reassessments:: Met - Tobacco Cessation Referral Smoking Cessation Referral:: No Individual Education/Counseling:: No Education Schedule Given:: Yes Core - 60-Day Assessment Core - 90 Day Assessment Core - Final Assessment Psychosocial - Initial Assess Psychosocial - 30-Day Assess - VIsit Date of Eval: 12/30/21 Session #:: 12 Not Applicable: Yes History of previous Mental disease:: No - Psychosocial Test Tool Used:: PHQ-9 Questionnaire phq-9 Severity: Severity. 1-4 Minimal Depression. 5-9 Mild Depression. 10-14 Moderate Depression. 15-19 Moderately Sever Depression. 20-27 Severe Depression. Rule: - Referral to Behavioral Health PS - Interventions: Yes Attend Stress Management Classes, No Referral to Behavioral Health if PHQ-9 score >9:, No Referral to [facility], No Referral to Physician if PHQ-9 if score is 5-9: - Outcomes/Goals: See list Psychosocial Outcomes/Goals:: ID's personal stressors & 2 strategies to manage stress by discharge - Intervention/Plan: See List Interventions/Plan:: Assess stressors,coping strategies & signs of derpression on admission, Instruct/assist pt to develop coping & personal stress Mgt strategies, Instruct patient to recognize signs & symptoms of depression, Instruct patient to recog - 30-day Reassessments: 30 day Reassessments:: Progressing Psychosocial - 60-Day Assess Psychosocial - 90-Day Assess Psychosocial - Final Assessmen Patient Health Questionnaire 30-Day Re-eval Assessment 1. Little interest or pleasure in doing things: Not at all 2. Feeling down, depressed, or hopeless: Not at all 3. Trouble falling or staying asleep, or sleeping too much: Not at all 4. Feeling tired or having little energy: Not at all 5. Poor appetite or overeating: Not at all 6. Feeling bad about yourself -- or that you are a failure or have let yourself or your family down: Not at all 7. Trouble concentrating on things, such as reading the newspaper or watching television: Not at all 8. Moving or speaking so slowly that other people could have noticed. Or the opposite - being so fidgety or restless that you have been moving around a lot more than usual: Not at all 9. Thoughts that you would be better off , or of hurting yourself in some way: Not at all How difficult have these problems made it for you to do your work, take care of things at home, or get along with other people?: Not difficult at all Total Score: 0 Self-Efficacy 30-Day Re-eval Assessment We would like to know how confident you are in doing certain activities. Please select your confidence level for:: Select your confidence level for the following using the scale 1-10 where 1 is not at all confident and 10 is totally confident. Your score is the average of all 6 responses. Fatigue: How confident are you that you can keep the fatigue caused by your disease from interfering with the things you want to do? Select Number: 5 Physical Discomfort or Pain: How confident are you that you can keep the physical discomfort or pain of your disease from interfering with the things you want to do? Select Number: 6 Emotional Distress: How confident are you that you can keep the emotional distress caused by your disease from interfering with the things you want to do? Select Number: 9 Other Symptoms or Health Problems: How confident are you that you can keep other symptoms or health problems from interfering with the things you want to do? Select Number: 8 Different Tasks and Activities: How confident are you that you can do the different tasks and activities needed to manage your health condition so as to reduce your need to see a doctor? Select Number: 6 Medication: How confident are you that you can do things other than just taking medication to reduce how much your illness affects your everyday life? Select Number: 8 Total Score:: 7 Nutrition Survey
[2021-12-30 09:55] VITALS: BP 122/50; BP 184/82; BMI 34.9
== END 2022-01-09 23:59 ==
LOC: CR 13:00
PROVIDERS: Referring Provider Internal Medicine Cardiovascular Disease; Visit Provider Internal Medicine Cardiovascular Disease
DX: I25.10 Atherosclerotic heart disease of native coronary artery without angina pectoris (principal); I25.2 Old myocardial infarction; Z95.5 Presence of coronary angioplasty implant and graft; Z98.61 Coronary angioplasty status
CPT/HCPCS: 93798

== ENCOUNTER 2022-02-01 13:00 | Outpatient (RCR) | payer OTHER, SELFPAY ==
[2021-12-30 09:55] VITALS: BMI 34.9
[2022-01-10 00:38] VITALS: BP 122/50; BP 184/82
--- NOTE | 2022-01-25 11:00 | PCM.CR.ITP ---
Diagnosis Exercise - 60-day Assessment - Visit Date of Eval: 01/25/22 Session #:: 24 - Physician Prescribed Exercise Modalities: Treadmill, Airdyne, NuStep Frequency: 3x/week for 12 weeks [36 sessions] Intensity: 60-80% of age predicted maximum heart rate reserve Current METSs:: 7 Target Heart Rate:: 109-142 Current RPE:: 13-14 Maximum Excercise HR:: 136 Resting Blood Pressure: 102/58 Maximum Exercise Blood Pressure: 170/70 EKG Type: NSR to ST with rare PAC - Outcomes & Goals Goals:: Verbalizes understanding of THR, RPE & goal METS by session 6, Documents in home exercise log/reports 30 min aerobic 5 day/wk by DC, Demonstrates accurate pulse taking by DC, Other additional outcome/goals: see below - Intervention & Plan Exercise Program Goals: Instruct on personal THR & RPE, Instruct on MET level & personal MET goal, Show patient to take own pulse /validate performance until accurate, Instruct on home exercise, Other additional plan/int - 30-day Reassessments 30 day Reassessments:: Progressing - Working at high levels - Physical Activity Home Exercise Physical Activity - Home Exercise: Safe Exercise, Warm-up, Self-monitoring, Cool-Down, Home Exercise > 30 min Daily, Sitting Time <3 hours/daily - Outcomes & Goals Outcomes/Goals: Demonstrates correct Warm-up/exercise Cool-Down (S3) if = 2.5 METs, Verbalizes symptoms of exercise intolerance by Session 3 (S3), Demonstrate safe equipment use (S3) & follows exercise prescrition (6), Other: See below - Intervention & Plan Plan/Intervention: Instruct warm-up & cool-down if exercising at > 2 METs, Instruct on symptoms of exercise intolerance & actions to take, Instruct & monitor on saf, Assess intial functional capacity & safety risk, Other See below - 30-day Reassessments 30 day Reassessments:: Progressing - working at high levels Nutrition - Initial Assessment Nutrition - 30-Day Assessment Nutrition - 60-Day Assessment - Visit Date of Assessment:: 01/25/22 Session #:: 24 - Cholesterol/Lipids (Other Core Measures) Determine presence & major risk factors that modify LDL goal: Hypertension or hypertensive medication, Low HDL cholesterol <40 mg/dL*, Family history of premature CHD in Male < 55 years: female <65 yearsFa, Age men > 45 years; women >/= 55 years Outcomes/Goals: Pt IDs own risk factors & lifestyle modifications by Session 10, Verbalizes symptoms of angina & response by session 3., Pt independently manages, Other Additional Outcomes/Goals: Intervention/Plan: Advocate for lipid panel cholesterol medication if applicable, Instruct on personal lipid levels & lipid goals/NCEP guidelines, Instruct on cholesterol, Other additional plan/int Referral to dietitian:: Yes - medical nutrition therapy 30-day Reassessments:: Progressing - attending nutrition class - Diabetes (Other Core Measures) Diabetes Type: Not Applicable - Weight Mgt (Other Care) Height: 6 ft 3 in Weight:: 127.006 kg BMI: 34.9 Diagnosis Overweight/Obesity BMI> 30% ICD-10 E66: Yes Outcomes/Goals: Pt sets, maintains & shows weight loss goal & trend during rehab, Other additional outcomes/goals Intervention/Plan: Instruct on ideal BMI & set weight loss goal w/patient, Assist pt to ID & incorporate diet changes for weight loss by S9, Refer to Structured Weight Loss program as appropriate, Encourage goal of using 250-300dcal per session for weight loss, Other additional plan/interventions 30 day Reassessments:: Progressing - attending nutrition class - Healthy Eating Habits Will attend diet classes:: Yes Outcomes/Goals:: Consume diet rich in vegs,fruits,whole grain/high fiber,fish,lean meat, Limit sat/trans fats,cholesterol & added salts & sugars, Other additional outcome/goals: Intervention/Plan:: Assess current eating habits, Other Additional plan/interventions 30-day Reassessments:: Progressing - attending nutrition class - Education Gave educational materials for:: Signs & symptoms of hypoglycemia, Signs & symptoms of hyperglycemia, Relate diabetes to coronary artery disease, Healthy eating Nutrition - 90-Day Assessment Nutrition - Final Assessment Core - Initial Assessment Core - 30-Day Assessment Core - 60-Day Assessment - Visit Date of Eval: 01/25/22 Session #:: 24 - Medication Compliance Preventative Medication(s):: Aspirin, Ticagrelor/P2Y12 inhibitor, Statin/lipid, Beta shaji, Eliquis Doesn?t believe in the benefits of treatment?: No Believes medications are unnecessary or harmful?: No Has a concern about medication side effects?: No Expresses concern over the cost of medications?: No Outcomes/Goals: Verbalizes medications,desired effect & common side effects @ DC, Pt self-reports following medication regimen, Keeps card in wallet w/medications listed by DC, Other additional outcome/goals: Interventions/plans: Instruct on medication effects & side effects, Review medication list w/patient every two weeks, Instruct importance of taking meds as ordered & assist problem solving, Other additional 30-day Reassessments:: Progressing - pt is taking his meds - Tobacco Use Tobacco Use: Non-smoker - Hypertension Hypertension Diagnosis:: Hypertension ICD-10 I10 Resting Blood Pressure:: 102/58 [place] [employer] Hypertension Guidelines: [place] [employer] Hypertension Guidelines. Normal BP Less than 120/80. Elevated BP 120/80. Hypertension Stage 1: BP 130-139/80-89. Hypertesnion Stage 2: BP 140 or higher/90 or higher. Hypertension Crisis: BP higher than 180/120 Peak Exercise Blood Pressure:: 170/70 Outcomes/Goals: Able to verbalize/achieve optimal blood pressure <130/80, Incorporates diet changes & exercise for blood pressure control by DC, Other additional outcomes/goals Interventions/plan: Instruct on optimal blood pressure, hypertension & medications, Instruct on effects of sodium, alcohol, stress, exercise &hypertension, Other additional plan/interventions 30 day Reassessments:: Progressing - pt is taking his meds - Tobacco Cessation Referral Smoking Cessation Referral:: No Individual Education/Counseling:: No Education Schedule Given:: Yes Core - 90 Day Assessment Core - Final Assessment Psychosocial - Initial Assess Psychosocial - 30-Day Assess Psychosocial - 60-Day Assess - VIsit Date of Eval: 01/25/22 Session #:: 24 History of previous Mental disease:: No Psychosocial - 90-Day Assess Psychosocial - Final Assessmen Patient Health Questionnaire 60-Day Re-eval Assessment 1. Little interest or pleasure in doing things: Not at all 2. Feeling down, depressed, or hopeless: Not at all 3. Trouble falling or staying asleep, or sleeping too much: Not at all 4. Feeling tired or having little energy: Not at all 5. Poor appetite or overeating: Not at all 6. Feeling bad about yourself -- or that you are a failure or have let yourself or your family down: Not at all 7. Trouble concentrating on things, such as reading the newspaper or watching television: Not at all 8. Moving or speaking so slowly that other people could have noticed. Or the opposite - being so fidgety or restless that you have been moving around a lot more than usual: Not at all 9. Thoughts that you would be better off , or of hurting yourself in some way: Not at all How difficult have these problems made it for you to do your work, take care of things at home, or get along with other people?: Not difficult at all Total Score: 0 Self-Efficacy 60-Day Re-eval Assessment We would like to know how confident you are in doing certain activities. Please select your confidence level for:: Select your confidence level for the following using the scale 1-10 where 1 is not at all confident and 10 is totally confident. Your score is the average of all 6 responses. Fatigue: How confident are you that you can keep the fatigue caused by your disease from interfering with the things you want to do? Select Number: 5 Physical Discomfort or Pain: How confident are you that you can keep the physical discomfort or pain of your disease from interfering with the things you want to do? Select Number: 6 Emotional Distress: How confident are you that you can keep the emotional distress caused by your disease from interfering with the things you want to do? Select Number: 9 Other Symptoms or Health Problems: How confident are you that you can keep other symptoms or health problems from interfering with the things you want to do? Select Number: 8 Different Tasks and Activities: How confident are you that you can do the different tasks and activities needed to manage your health condition so as to reduce your need to see a doctor? Select Number: 6 Medication: How confident are you that you can do things other than just taking medication to reduce how much your illness affects your everyday life? Select Number: 8 Total Score:: 7 Nutrition Survey
[2022-01-25 11:09] VITALS: BP 102/58; BP 170/70; BMI 34.9
== END 2022-02-08 23:59 ==
LOC: CR 13:00
PROVIDERS: Referring Provider Internal Medicine Cardiovascular Disease; Visit Provider Internal Medicine Cardiovascular Disease
DX: I25.10 Atherosclerotic heart disease of native coronary artery without angina pectoris (principal); I25.2 Old myocardial infarction; Z95.5 Presence of coronary angioplasty implant and graft; Z98.61 Coronary angioplasty status
CPT/HCPCS: 93798

== ENCOUNTER 2022-02-27 13:00 | Outpatient (RCR) | payer OTHER, SELFPAY ==
[2022-01-25 11:09] VITALS: BMI 34.9
[2022-02-09 00:33] VITALS: BP 102/58; BP 170/70
--- NOTE | 2022-02-24 08:17 | PCM.CR.ITP ---
Diagnosis Exercise - 90-day Assessment - Visit Date of Eval: 02/24/22 Session #:: 35 - Physician Prescribed Exercise Modalities: Treadmill, Airdyne, NuStep Intensity: 60-80% of age predicted maximum heart rate reserve Current METSs:: 8.5 Target Heart Rate:: 109-142 Current RPE:: 13.5-14 Maximum Excercise HR:: 131 Resting Blood Pressure: 108/60 Maximum Exercise Blood Pressure: 186/90 EKG Type: NSR to ST - Outcomes & Goals Goals:: Verbalizes understanding of THR, RPE & goal METS by session 6, Documents in home exercise log/reports 30 min aerobic 5 day/wk by DC, Demonstrates accurate pulse taking by DC, Other additional outcome/goals: see below - Intervention & Plan Exercise Program Goals: Instruct on personal THR & RPE, Instruct on MET level & personal MET goal, Show patient to take own pulse /validate performance until accurate, Instruct on home exercise, Other additional plan/int - 30-day Reassessments 30 day Reassessments:: Met - Physical Activity Home Exercise Physical Activity - Home Exercise: Safe Exercise, Warm-up, Self-monitoring, Cool-Down, Home Exercise > 30 min Daily, Sitting Time <3 hours/daily - Outcomes & Goals Outcomes/Goals: Demonstrates correct Warm-up/exercise Cool-Down (S3) if = 2.5 METs, Verbalizes symptoms of exercise intolerance by Session 3 (S3), Demonstrate safe equipment use (S3) & follows exercise prescrition (6), Other: See below - Intervention & Plan Plan/Intervention: Instruct warm-up & cool-down if exercising at > 2 METs, Instruct on symptoms of exercise intolerance & actions to take, Instruct & monitor on saf, Assess intial functional capacity & safety risk, Other See below - 30-day Reassessments 30 day Reassessments:: Met Nutrition - Initial Assessment Nutrition - 30-Day Assessment Nutrition - 60-Day Assessment Nutrition - 90-Day Assessment - Visit Date of Assessment:: 02/24/22 Session #:: 35 - Cholesterol/Lipids (Other Core Measures) Determine presence & major risk factors that modify LDL goal: Hypertension or hypertensive medication, Low HDL cholesterol <40 mg/dL*, Family history of premature CHD in Male < 55 years: female <65 yearsFa, Age men > 45 years; women >/= 55 years Outcomes/Goals: Pt IDs own risk factors & lifestyle modifications by Session 10, Verbalizes symptoms of angina & response by session 3., Pt independently manages, Other Additional Outcomes/Goals: Intervention/Plan: Advocate for lipid panel cholesterol medication if applicable, Instruct on personal lipid levels & lipid goals/NCEP guidelines, Instruct on cholesterol, Other additional plan/int Referral to dietitian:: Yes - medical nutrition therapy 30-day Reassessments:: Met - Diabetes (Other Core Measures) Diabetes Type: Not Applicable - Weight Mgt (Other Care) Height: 6 ft 3 in Weight:: 127.913 kg BMI: 35.2 Diagnosis Overweight/Obesity BMI> 30% ICD-10 E66: Yes Outcomes/Goals: Pt sets, maintains & shows weight loss goal & trend during rehab, Other additional outcomes/goals Intervention/Plan: Instruct on ideal BMI & set weight loss goal w/patient, Assist pt to ID & incorporate diet changes for weight loss by S9, Refer to Structured Weight Loss program as appropriate, Encourage goal of using 250-300dcal per session for weight loss, Other additional plan/interventions 30 day Reassessments:: Met - Healthy Eating Habits Will attend diet classes:: Yes Outcomes/Goals:: Consume diet rich in vegs,fruits,whole grain/high fiber,fish,lean meat, Limit sat/trans fats,cholesterol & added salts & sugars, Other additional outcome/goals: Intervention/Plan:: Assess current eating habits, Other Additional plan/interventions 30-day Reassessments:: Met - Education Gave educational materials for:: Signs & symptoms of hypoglycemia, Signs & symptoms of hyperglycemia, Relate diabetes to coronary artery disease, Healthy eating Nutrition - Final Assessment Core - Initial Assessment Core - 30-Day Assessment Core - 60-Day Assessment Core - 90 Day Assessment - Visit Date of Eval: 02/24/22 Session #:: 35 - Medication Compliance Preventative Medication(s):: Ticagrelor/P2Y12 inhibitor, Statin/lipid, Beta shaji Doesn?t believe in the benefits of treatment?: No Believes medications are unnecessary or harmful?: No Has a concern about medication side effects?: No Expresses concern over the cost of medications?: No Outcomes/Goals: Verbalizes medications,desired effect & common side effects @ DC, Pt self-reports following medication regimen, Keeps card in wallet w/medications listed by DC, Other additional outcome/goals: Interventions/plans: Instruct on medication effects & side effects, Review medication list w/patient every two weeks, Instruct importance of taking meds as ordered & assist problem solving, Other additional 30-day Reassessments:: Met - Tobacco Use Tobacco Use: Non-smoker 30-day Reassessments:: Met - Hypertension Hypertension Diagnosis:: Hypertension ICD-10 I10 Resting Blood Pressure:: 108/60 [place] [employer] Hypertension Guidelines: [place] [employer] Hypertension Guidelines. Normal BP Less than 120/80. Elevated BP 120/80. Hypertension Stage 1: BP 130-139/80-89. Hypertesnion Stage 2: BP 140 or higher/90 or higher. Hypertension Crisis: BP higher than 180/120 Peak Exercise Blood Pressure:: 186/90 Outcomes/Goals: Able to verbalize/achieve optimal blood pressure <130/80, Incorporates diet changes & exercise for blood pressure control by DC, Other additional outcomes/goals Interventions/plan: Instruct on optimal blood pressure, hypertension & medications, Instruct on effects of sodium, alcohol, stress, exercise &hypertension, Other additional plan/interventions 30 day Reassessments:: Met - Tobacco Cessation Referral Smoking Cessation Referral:: No Individual Education/Counseling:: No Education Schedule Given:: Yes Core - Final Assessment Psychosocial - Initial Assess Psychosocial - 30-Day Assess Psychosocial - 60-Day Assess Psychosocial - 90-Day Assess - VIsit Date of Eval: 02/24/22 Session #:: 35 History of previous Mental disease:: No - Outcomes/Goals: See list Psychosocial Outcomes/Goals:: ID's personal stressors & 2 strategies to manage stress by discharge, Other Additional outcome/goals: - Intervention/Plan: See List Interventions/Plan:: Assess stressors,coping strategies & signs of derpression on admission, Instruct/assist pt to develop coping & personal stress Mgt strategies, Refer to Behavioral Health if appropriate, Refer to Physician if appropriate, Instruct patient to recognize signs & symptoms of depression, Instruct patient to recog, Other additional plan/intervention - 30-day Reassessments: 30 day Reassessments:: Met Psychosocial - Final Assessmen Patient Health Questionnaire 90-Day Re-eval Assessment 1. Little interest or pleasure in doing things: Not at all 2. Feeling down, depressed, or hopeless: Not at all 3. Trouble falling or staying asleep, or sleeping too much: Not at all 4. Feeling tired or having little energy: Not at all 5. Poor appetite or overeating: Not at all 6. Feeling bad about yourself -- or that you are a failure or have let yourself or your family down: Not at all 7. Trouble concentrating on things, such as reading the newspaper or watching television: Not at all 8. Moving or speaking so slowly that other people could have noticed. Or the opposite - being so fidgety or restless that you have been moving around a lot more than usual: Not at all 9. Thoughts that you would be better off , or of hurting yourself in some way: Not at all How difficult have these problems made it for you to do your work, take care of things at home, or get along with other people?: Not difficult at all Total Score: 0 Self-Efficacy 90-Day Re-eval Assessment We would like to know how confident you are in doing certain activities. Please select your confidence level for:: Select your confidence level for the following using the scale 1-10 where 1 is not at all confident and 10 is totally confident. Your score is the average of all 6 responses. Fatigue: How confident are you that you can keep the fatigue caused by your disease from interfering with the things you want to do? Select Number: 5 Physical Discomfort or Pain: How confident are you that you can keep the physical discomfort or pain of your disease from interfering with the things you want to do? Select Number: 6 Emotional Distress: How confident are you that you can keep the emotional distress caused by your disease from interfering with the things you want to do? Select Number: 9 Other Symptoms or Health Problems: How confident are you that you can keep other symptoms or health problems from interfering with the things you want to do? Select Number: 8 Different Tasks and Activities: How confident are you that you can do the different tasks and activities needed to manage your health condition so as to reduce your need to see a doctor? Select Number: 6 Medication: How confident are you that you can do things other than just taking medication to reduce how much your illness affects your everyday life? Select Number: 9 Total Score:: 7 Nutrition Survey
[2022-02-24 08:26] VITALS: BP 108/60; BP 186/90; BMI 35.2
== END 2022-03-11 23:59 ==
LOC: CR 13:00
PROVIDERS: Referring Provider Internal Medicine Cardiovascular Disease; Visit Provider Internal Medicine Cardiovascular Disease
DX: I25.10 Atherosclerotic heart disease of native coronary artery without angina pectoris (principal); I25.2 Old myocardial infarction; Z95.5 Presence of coronary angioplasty implant and graft; Z98.61 Coronary angioplasty status
CPT/HCPCS: 93798

== ENCOUNTER → 2024-06-10 | Outpatient (CLI) | payer OTHER, SELFPAY ==
[2022-02-24 08:26] VITALS: BMI 35.2
[2024-06-10 12:35] LABS: Hematocrit 46.1 % (40-54); Hemoglobin 16.3 g/dL (13.0-16.5); Mean Corp Hgb Conc 35.4 g/dL (32-36); Mean Corpuscular Hgb 31.7 pg (27.0-32.0); Mean Corpuscular Volume 89.7 fL (80-94); Mean Platelet Vol. 8.7 fl (6.2-12.0); Platelet Count 245 K/mm3 (150-450); RBC Distribution Width CV 12.7 % (11.6-14.6); RBC Distribution Width SD 41.9 fl (35.1-43.9); Red Blood Count 5.14 M/mm3 (4.6-6.2); White Blood Count 10.4 K/mm3 (4.4-11.0)
[2024-06-10 13:11] LABS: ALB/GLOB Ratio 1.5 RATIO (0.9-2.4); AST(SGOT) 29 U/L (<=37); Alanine Aminotransfer ALT/SGPT 49 U/L (<=46); Albumin, Serum 4.3 g/dL (3.5-5.0); Alkaline Phosphatase 103 U/L (40-129); Anion Gap 12 (5-15); BUN 16 mg/dL (4-19); BUN/Creat Ratio 21.6 RATIO (10-20); Calcium,Total 9.5 mg/dL (7.6-11.0); Chloride 101 mmol/L (98-108); Cholesterol 154 mg/dL (<=200); Creatinine, Serum 0.75 mg/dL (0.70-1.20); EST Glomerular Filtration Rate 107 (>60); Glucose 249 mg/dL (70-99); High Density Lipoprotein 29 mg/dL; Low Density Lipoprotein Calc. 18 mg/dL; Potassium 4.5 mmol/L (3.3-5.1); Protein, Total 7.3 g/dL (5.9-8.4); Sodium Level 137 mmol/L (133-145); Total Bilirubin 0.62 mg/dL (0.00-1.30); Triglycerides 533 mg/dL; Very Low Density Lipoprotein 107 mg/dL (5-40); cholesterol:hdl ratio screen 5.27
[2024-06-10 14:47] LABS: Hemoglobin A1c 8.4 % (<=5.6)
== END | disposition home or self-care (01) ==
LOC: LAB 11:53
PROVIDERS: Nurse Practitioner Family; Referring Provider Internal Medicine Cardiovascular Disease; Visit Provider Internal Medicine Cardiovascular Disease
DX: E78.5 Hyperlipidemia, unspecified (principal); I48.0 Paroxysmal atrial fibrillation; E66.9 Obesity, unspecified; I10 Essential (primary) hypertension; I25.10 Atherosclerotic heart disease of native coronary artery without angina pectoris; Z95.5 Presence of coronary angioplasty implant and graft; Z86.79 Personal history of other diseases of the circulatory system
CPT/HCPCS: 36415; 80053; 80061; 83036; 85027

== ENCOUNTER → 2024-07-14 | Outpatient (CLI) | payer OTHER, SELFPAY ==
[2022-02-24 08:26] VITALS: BMI 35.2
--- NOTE | 2024-07-14 06:53 | ECHOCS_ITS ---
Reason For Study Reason For Study: CAD/ASHD Procedure This was a 2D Doppler, Color Flow transthoracic echocardiogram. The study was technically difficult. Contrast injection was performed. Exam performed in department. Left Ventricle Normal size and thickness. The LV systolic function is normal. EF is 65 %. Normal diastololic function. Right Ventricle Normal right ventricle. Atria The left and right atria are normal. Mitral Valve Normal mitral valve. Tricuspid Valve Normal tricuspid valve. Aortic Valve Trisinus/trileaflet aortic valve. Pulmonic Valve The pulmonic valve is not well visualized. Trivial pulmonic valve insufficiency. Great Vessels Normal sized aortic root. Pericardium/Pleural No pericardial effusion. Medication 22 gauge I.V. with prn adaptor inserted into right arm. Diluted definity 2ml given slow IV push to enhance endocardial definition. MMode/2D Measurements & Calculations LVIDd: 4.9 cm IVSd: 1.0 cm Ao root diam: 3.4 cm LVIDs: 3.9 cm LVPWd: 1.0 cm RVDd: 4.3 cm FS: 20.6 % LAV(MOD-bp): 61.8 ml LVAd ap4: 36.2 cm2 SV(MOD-sp4): 68.8 ml LAV(MOD-bp) Indexed: 23.8 ml/m2 LVLd ap4: 8.6 cm SI(MOD-sp4): 26.5 ml/m2 LAV(MOD-sp2): 60.7 ml EDV(MOD-sp4): 123.2 ml LAV(MOD-sp4): 57.2 ml EDV(sp4-el): 128.7 ml LVAs ap4: 22.0 cm2 LVLs ap4: 7.3 cm ESV(MOD-sp4): 54.3 ml ESV(sp4-el): 56.6 ml EF(MOD-sp4): 55.9 % EF(sp4-el): 56.0 % SV(sp4-el): 72.1 ml LA A4 area: 19.6 cm2 LA dimension(2D): 4.7 cm RA A4 area: 16.1 cm2 TAPSE: 2.6 cm Time Measurements MV dec time: 0.20 sec Doppler Measurements & Calculations MV E max marquez: 92.4 cm/sec Lat Peak E' Marquez: 12.6 cm/sec Med Peak E' Marquez: 11.9 cm/sec MV A max marquez: 69.5 cm/sec E/E' lat: 7.3 E/E' med: 7.8 MV E/A: 1.3 MV V2 max: 108.3 cm/sec MV P1/2t max marquez: 109.1 cm/sec Ao V2 max: 128.5 cm/sec MV max P.7 mmHg MV P1/2t: 71.3 msec Ao max P.6 mmHg MV V2 mean: 62.7 cm/sec MV dec slope: 448.1 cm/sec2 Ao V2 mean: 89.7 cm/sec MV mean P.9 mmHg MVA(P1/2t): 3.1 cm2 Ao mean P.7 mmHg MV V2 VTI: 23.5 cm Ao V2 VTI: 27.1 cm AV (velocity ratio): 0.88 LV V1 max: 115.2 cm/sec PA V2 max: 106.1 cm/sec LV V1 max P.3 mmHg LV V1 mean P.0 mmHg LV V1 mean: 82.1 cm/sec LV V1 VTI: 23.8 cm ECHO/Echo Complete W/ Contrast Interpretation Summary The LV systolic function is normal. EF is 65 %. The study was technically difficult. Ordering Physician: Naseem Betts Referring Physician: Naseem Betts Performed By: Harjinder Wild RCS
--- NOTE | 2024-07-14 09:51 | STRESSREP_ITS ---
Stress Test Report Date: 07/14/2024 Procedure: Exercise tolerance test/imaging study Indications: Coronary artery Consent: Per the patient Procedure: The patient exercised on a Quentin protocol for 7 minutes achieving a peak heart rate of 160 bpm (97% predicted maximal heart rate) with a peak blood pressure 202/70 mmHg and a peak MET capacity of 10.1 METs. The baseline ECG demonstrated normal sinus rhythm. The peak exercise ECG with millimeter ST depressions in inferior and lateral leads suggestive of ischemia. Occasional PVCs noted during exercise. The functional capacity was considered good. There was no complaint of chest discomfort during exercise or recovery. The examination was discontinued secondary to target heart rate being achieved and dyspnea. The patient was injected with 15.0 mCi of technetium 99m Cardiolite and subsequently rest SPECT Cardiolite nuclear imaging was obtained in the horizontal long, vertical long, and short axis views. Post-exercise, the patient was injected with 44.8 mCi of technetium 99m Cardiolite and subsequently stress SPECT Cardiolite nuclear imaging was obtained in the horizontal long, vertical long, and short axis views. A gated Cardiolite study at peak stress was obtained. Rest and stress SPECT Cardiolite nuclear imaging status post realignment, normalization, and attenuation correction, demonstrates mildly reduced perfusion of the inferior wall suggestive of previous infarction. No significant shagufta- infarct ischemia noted. Mild inferior hypokinesis noted on gated images. The gated Cardiolite study demonstrates mild inferior hypokinesis. The reported LVEF is 63%. Impression: 1. Technically adequate (percent predicted maximal heart rate greater than 85%) exercise tolerance test 2. Peak exercise ECG with ST changes that may suggest ischemia. Hypertensive response to exercise 3. Occasional PVCs with exercise 4. Rest and stress SPECT Cardiolite nuclear imaging demonstrate fixed perfusion defect of the inferior wall suggestive of prior IA. No reversible ischemia. 5. The gated Cardiolite study reports an LVEF of 63%. 6. Exercise ECG changes suggestive of ischemia but no reversible perfusion defect noted with exercise. Overall negative exercise stress Myoview. This note was generated with As Seen on TVation software. It may contain incorrect words, spelling, and punctuation that were not noted in checking the note before signing.
== END | disposition home or self-care (01) ==
LOC: CVS 06:51
PROVIDERS: Referring Provider Internal Medicine Cardiovascular Disease; Visit Provider Internal Medicine Cardiovascular Disease
DX: I25.10 Atherosclerotic heart disease of native coronary artery without angina pectoris (principal)
CPT/HCPCS: 78452; 93017; 93306; A9500; Q9957; A4216; C8929

== ENCOUNTER 2024-12-15 09:19 | Day surgery (SDC) | payer OTHER, SELFPAY ==
[2022-02-24 08:26] VITALS: BMI 35.2
[2024-12-12 07:53] VITALS: BMI 36.5
[2024-12-15 09:58] LABS: Anion Gap 11 (5-15); BUN 19 mg/dL (4-19); BUN/Creat Ratio 25.4 RATIO (10-20); Calcium,Total 9.3 mg/dL (7.6-11.0); Carbon Dioxide 25.6 mmol/L (21.0-32.0); Chloride 104 mmol/L (98-108); Estimated Creatinine Clearance 161.28 ml/min (50-250); Glucose 167 mg/dL (70-99); Potassium 4.5 mmol/L (3.3-5.1)
--- NOTE | 2024-12-15 11:09 | CL.IE_ITS ---
Patient: ALLEY GUPTA Study Date: 12/15/2024 Performing: Sebastian Lorenzo MD : 1970 Age: 54 Gender: male PROCEDURES PERFORMED [id number])INSERTION OF LOOP RECORDER INDICATIONS Atrial fibrillation PROCEDURE DETAILS The patient was brought to the Catheterization Lab in the postabsorptive nonsedated state. Informed consent was obtained prior to the procedure. Incision was made to the left upper chest. ICM Loop Recorder was inserted. The patient tolerated the procedure well. Estimated Blood Loss: < 10 mls IMPLANTED / EX-PLANTED DEVICES IMPLANTED DEVICE(S): ICM Loop Recorder - Production Specialist: [employer] , Model # [id number] , Serial # [id number] DEVICE PARAMETERS CONCLUSIONS / RECOMMENDATIONS Device Conclusions: Successful implantation of a patient activated loop recorder. Device Recommendations: Follow up with Primary Care Physician PROCEDURE MEDICATIONS Ancef 3 Gm IV @ 12/15/2024 10:29:21 Signed By Sebastian Lorenzo MD On 12/15/2024 11:08:17 Sebastian Lorenzo MD
== END 2024-12-15 11:45 | disposition home or self-care (01) ==
PROVIDERS: Referring Provider Internal Medicine Cardiovascular Disease; Visit Provider Internal Medicine Cardiovascular Disease
DX: Z45.09 Encounter for adjustment and management of other cardiac device (principal); I48.0 Paroxysmal atrial fibrillation; I25.10 Atherosclerotic heart disease of native coronary artery without angina pectoris; I10 Essential (primary) hypertension; Z79.899 Other long term (current) drug therapy; Z79.02 Long term (current) use of antithrombotics/antiplatelets; Z87.891 Personal history of nicotine dependence
CPT/HCPCS: 33285; 36415; 80048